=== PATIENT | female | born 1930 | race Caucasian/White ===

== ENCOUNTER 2018-04-22 16:39 | Inpatient (IN) | payer MEDICAID ==
[~2018-04-22] VITALS: Ht 154.9 cm; Wt 63.4 kg
[2018-04-22] MEDS ORDERED: CEFEPIME 2GM/50 ML (PMX) 50 ML IVPB STA (17:08)
[2018-04-22] MEDS ORDERED: SODIUM CHLORIDE 0.9% 1L BAG IV* STA (17:08)
[2018-04-22] MEDS ORDERED: VANCOMYCIN 1 GM (PMX) 250 ML IVPB ONE (17:30)
[2018-04-22] MEDS ORDERED: DIPHENHYDRAMINE 50 MG INJ IV ONE (21:00)
[2018-04-22] MEDS ORDERED: RANITIDINE 50 MG in SOD CHLORIDE 0.9% 50 ML IVPB SCH (21:00)
[2018-04-22] MEDS: ACETAMINOPHEN 325 MG TAB PO ONE ×2 (21:46→22:24)
[2018-04-22] MEDS ORDERED: ONDANSETRON 4 MG INJ IV PRN ×2 (22:00→23:30)
[2018-04-22] MEDS ORDERED: ACETAMINOPHEN 325 MG TAB PO PRN ×2 (22:00→23:30)
[2018-04-22 22:41] VITALS: PULSE 112
[2018-04-22] MEDS ORDERED: CAPT25TA3 PO (23:02)
[2018-04-22] MEDS ORDERED: INDA1.25 PO (23:02)
[2018-04-22 23:04] VITALS: Ht 154.9 cm; Wt 63.4 kg
--- NOTE | 2018-04-22 23:26 | HP ---
Date/Time of Note Date/Time of Note DATE: 04/22/18 TIME: 23:24 Assessment/Plan VTE Prophylaxis Pharmacological prophylaxis: heparin Lines/Catheters IV Catheter Type (from Nrsg): [place] Assessment/Plan Assessment/Plan 1. Sepsis, as evidenced by fever and tachycardia, likely secondary to UTI -IV antibiotic, IV fluid -Follow-up culture results 2. Altered mental status -Patient was complaining of headache 5 days ago and there for the past 5 days he has been progressively more confused and having some difficulty with ambulation -Patient blood pressure has been fluctuating here in the hospital, so hypertensive encephalopathy is a possibility. We will however rule out CVA -I will order head CT. This will be followed up with MRI of the brain. Will also obtain carotid Doppler ultrasound and 2D echo -PT and speech/swallow eval. Patient failed bedside swallow eval -Neurology consult, who should also address left upper extremity tremor 3. 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 Patient also unable to fully extend arm -X-ray of left upper extremity -Neurology consult as mentioned above 4. Presumed VENKAT: Likely from dehydration because of decreased fluid intake -will hydrate for now. Renal ultrasound and nephrology consult as needed 5. Hypertension: BP has been fluctuating -Adjust BP meds as needed Result Diagram: 04/22/18 1725 04/22/18 1725 Results 24hrs Laboratory Tests Test 04/22/18 17:24 04/22/18 17:25 04/22/18 19:04 04/22/18 19:17 POC Venous Lactate 1.9 1.7 White Blood Count 10.5 Red Blood Count 3.92 L Hemoglobin 12.0 Hematocrit 36.1 L Mean Corpuscular 92.1 Volume Mean Corpuscular 30.6 Hemoglobin Mean Corpuscular 33.2 Hemoglobin Concent Red Cell 13.7 Distribution Width Platelet Count 172 Mean Platelet Volume 10.9 H Immature 0.700 H Granulocytes % Neutrophils % 76.4 Lymphocytes % 11.7 L Monocytes % 10.8 Eosinophils % 0.2 Basophils % 0.2 Nucleated Red Blood 0.0 Cells % Immature 0.070 H Granulocytes # Neutrophils # 8.0 H Lymphocytes # 1.2 Monocytes # 1.1 H Eosinophils # 0.0 Basophils # 0.0 Nucleated Red Blood 0.0 Cells # Prothrombin Time 14.0 Prothrombin Time 1.1 Ratio INR International 1.07 Normalized Ratio Activated 25.8 Partial Thromboplast Time Sodium Level 138 Potassium Level 3.5 Chloride Level 100 Carbon Dioxide Level 27 Anion Gap 11 Blood Urea Nitrogen 34 H Creatinine 1.15 H Est Glomerular Filtrat Rate mL/min Glucose Level 227 H Calcium Level 10.2 Total Bilirubin 0.7 Direct Bilirubin 0.00 Indirect Bilirubin 0.7 Aspartate Amino 28 Transf (AST/SGOT) Alanine 24 Aminotransferase (AL T/SGPT) Alkaline Phosphatase 112 Troponin I < 0.012 Total Protein 8.3 H Albumin 4.3 Globulin 4.00 H Albumin/Globulin 1.07 Ratio Urine Color STRAW Urine Clarity CLEAR Urine pH 6.0 Urine Specific 1.009 [place] Urine Ketones NEGATIVE Urine Nitrite POSITIVE A Urine Bilirubin NEGATIVE Urine Urobilinogen NEGATIVE Urine Leukocyte NEGATIVE Esterase Urine Microscopic 1 RBC Urine Microscopic 2 WBC Urine Bacteria FEW A Urine Hemoglobin 1+ H Urine Glucose NEGATIVE Urine Total Protein 1+ H Test 04/22/18 21:32 Lactic Acid Level 1.9 HPI/ROS Admit Date/Time Admit Date/Time Apr 22, 2018 at 21:39 Hx of Present Illness This is an 87-year-old female with a history of hypertension who was brought to the ER for confusion. Patient is accompanied by family who provided history. According to the son, patient was complaining of headache 5 days ago. Three days ago, she started becoming confused and was having difficulty with ambulation. Son also reported foul-smelling urine. He said, patient normally is able to care for herself, however for the past 3 days she was unable to do so. Patient has been drinking only small amount of water, but has been eating food normally like she used to according to her son. Son also thinks that patient may be constipated saying that sometimes she has been screaming with pain when having bowel movements. No diarrhea, no rectal bleeding. On physical exam, I noticed that she has tremors on her left upper extremity. According to the son, this is been going on for the past 4 years. He went on to say that doctors told him this is part of the normal aging process. She is not able to fully extend her left arm. No obvious deformity noted. Family was unaware of this. They denied trauma. And presents the ER, she was febrile with a temperature of 102. She was also tachycardic. Lab shows a creatinine of 1.15. PMH/Family/Social Past Medical History Medical History: other (See HPI) Medications Current Medications Ranitidine HCl 50 mg/Sodium Chloride 52 ml @ 104 mls/hr ONCE IVPB Last administered on 04/22/18at 21:39; Admin Dose 104 MLS/HR; Start 04/22/18 at 21:00 Ondansetron HCl (Zofran Inj) 4 mg ER BRIDGE PRN IV NAUSEA/VOMITING; Start 04/22/18 at 22:00; Stop 04/23/18 at 21:59 Acetaminophen (Tylenol Tab) 650 mg ER BRIDGE PRN PO .MILD PAIN 1-3 OR TEMP; Start 04/22/18 at 22:00; Stop 04/23/18 at 21:59 Sodium Chloride 1,000 ml @ 80 mls/hr [id number] IV ; Start 04/22/18 at 23:15; Status UNV IV Flush (NS 3 ml) 3 ml PER PROTOCOL IV ; Start 04/22/18 at 23:30; Status UNV Ondansetron HCl (Zofran Inj) 4 mg Q6H PRN IV NAUSEA/VOMITING; Start 04/22/18 at 23:30; Status UNV Aspirin (Aspirin) 81 mg DAILY PO ; Start 04/23/18 at 09:00; Status UNV Acetaminophen (Tylenol Tab) 650 mg Q6H PRN PO .PAIN 1-3 OR TEMP; Start 04/22/18 at 23:30; Status UNV Heparin Sodium (Porcine) (Heparin (5000 Units/1ml)) 5,000 unit Q12 SC ; Start 04/23/18 at 09:00; Status UNV Albuterol/ Ipratropium (Duoneb) 3 ml Q2H RESP THERAPY PRN HHN SHORTNESS OF BREATH; Start 04/22/18 at 23:30; Status UNV Metoprolol Tartrate (Lopressor) 25 mg BID PO ; Start 04/23/18 at 09:00; Status UNV Coded Allergies: No Known Allergy (Verified Allergy, Unknown, 01/21/09) Past Surgical History Past Surgical Hx: other (See HPI) Family History Significant Family History: no pertinent family hx Social History Alcohol Use: none Smoking Status: Never smoker Drug Use: none Exam/Review of Systems Vital Signs Vitals Vital Signs Date Temp Pulse Resp B/P (MAP) Pulse Ox O2 O2 Flow FiO2 Time Delivery Rate 04/22/18 112 22:41 04/22/18 102.0 22:24 04/22/18 27 98/84 (89) 97 Nasal 3.0 22:18 Cannula Exam Constitutional: other (No acute distress. Patient appears lethargic, but arousable. Not fully oriented) Head: normocephalic, atraumatic Eyes: PERRL Respiratory: clear to auscultation, normal air movement Cardiovascular: other (Tachycardic regular rhythm) Gastrointestinal: soft Extremities: normal pulses, other (Left upper extremity tremor.) Neurological: other (Not fully oriented. Left upper extremity tremor noted. Unable to fully assess because of her current mental status) JAVED BRADY MD Apr 22, 2018 23:26
[2018-04-22] MEDS ORDERED: NACL 0.9% 3 ML SYG IV SCH (23:30)
[2018-04-23] VITALS (14 sets, daily range): BP systolic 131–200; BP diastolic 62–88; PULSE 92–102; RESP 17–18
[2018-04-23] MEDS ORDERED: LABETALOL HCL 20MG INJ IV ONE
[2018-04-23] MEDS: SOD CHLORIDE 0.9% 1,000 ML IV SCH ×2 (00:20→12:07)
[2018-04-23] MEDS ORDERED: ACETAMINOPHEN 650 MG SUPP PR PRN (00:30)
[2018-04-23] MEDS ORDERED: hydrALAzine 20 MG INJ IV ONE (05:00)
[2018-04-23] MEDS: CEFEPIME 1GM/50 ML (PMX) 50 ML IVPB SCH ×2 (08:48→20:30)
[2018-04-23] MEDS: METOPROLOL 25 MG TAB PO SCH ×2 (09:00→20:29)
[2018-04-23] MEDS ORDERED: VANCOMYCIN IV PER PHARMACY XX SCH (09:00)
[2018-04-23] MEDS ORDERED: ASPIRIN 81 MG TAB PO SCH (09:00)
--- NOTE | 2018-04-23 09:21 | PN ---
Date/Time of Note Date/Time of Note DATE: 04/23/18 TIME: 09: Assessment/Plan VTE Prophylaxis Risk score (from Ns)>0 risk: 7 SCD applied (from Ns): Yes Pharmacological prophylaxis: heparin Lines/Catheters IV [facility]from [facility] Peripheral IV Urinary Cath still in place: No Assessment/Plan Hospital Course Subjective: very altered and sleepy, not safe for a diet Objective : Constitutional: other (No acute distress. Patient appears lethargic, but arousable. Not fully oriented) Head: normocephalic, atraumatic Eyes: PERRL Respiratory: clear to auscultation, normal air movement Cardiovascular: other (Tachycardic regular rhythm) Gastrointestinal: soft Extremities: normal pulses, other (Left upper extremity tremor.) Neurological: other (Not fully oriented. Left upper extremity tremor noted. Unable to fully assess because of her current mental status) assessment and plan This is an 87-year-old female with a history of hypertension who was brought to the ER for confusion. Patient is accompanied by family who provided history. According to the son, patient was complaining of headache 5 days ago. Three days ago, she started becoming confused and was having difficulty with ambulation. Son also reported foul-smelling urine. She is managed as follows: 1. Sepsis, likely secondary to UTI 2. Altered mental status -may be 2/2 #1, but also being worked up for organic brain injury -CT head showing old strokes only for now -may also be progression of dementia 3. 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 Patient als o unable to fully extend arm -X-ray of left upper extremity still pending -Neurology consult -F/u MRI 4. VENKAT: resolved with hydration -continue to monitor creatinine levels -stop IVF as soon as patient can take PO 5. Hypertension: BP has been fluctuating -home ACei and thiazide on hold for now, not cleared for PO, continue PRN hydralazine only 6. : Prev CVA 7. Hypokalemia: -replete 8. DM. Hgb A1c 8.0 -?new diagnosis, will have to get more information -SSI for now, (NPO), depending on indices, we'll determine further care further interventions per course Prophylaxis: pepcid / heparin Result Diagram: 04/23/1831 2/28/19 0531 Results 24hrs Laboratory Tests Test 04/22/18 17:24 04/22/18 17:25 04/22/18 19:04 04/22/18 19:17 POC Venous Lactate 1.9 1.7 White Blood Count 10.5 Red Blood Count 3.92 L Hemoglobin 12.0 Hematocrit 36.1 L Mean Corpuscular 92.1 Volume Mean Corpuscular 30.6 Hemoglobin Mean Corpuscular 33.2 Hemoglobin Concent Red Cell 13.7 Distribution Width Platelet Count 172 Mean Platelet Volume 10.9 H Immature 0.700 H Granulocytes % Neutrophils % 76.4 Lymphocytes % 11.7 L Monocytes % 10.8 Eosinophils % 0.2 Basophils % 0.2 Nucleated Red Blood 0.0 Cells % Immature 0.070 H Granulocytes # Neutrophils # 8.0 H Lymphocytes # 1.2 Monocytes # 1.1 H Eosinophils # 0.0 Basophils # 0.0 Nucleated Red Blood 0.0 Cells # Prothrombin Time 14.0 Prothrombin Time 1.1 Ratio INR International 1.07 Normalized Ratio Activated 25.8 Partial Thromboplast Time Sodium Level 138 Potassium Level 3.5 Chloride Level 100 Carbon Dioxide Level 27 Anion Gap 11 Blood Urea Nitrogen 34 H Creatinine 1.15 H Est Glomerular Filtrat Rate mL/min Glucose Level 227 H Calcium Level 10.2 Total Bilirubin 0.7 Direct Bilirubin 0.00 Indirect Bilirubin 0.7 Aspartate Amino 28 Transf (AST/SGOT) Alanine 24 Aminotransferase (AL T/SGPT) Alkaline Phosphatase 112 Troponin I < 0.012 Total Protein 8.3 H Albumin 4.3 Globulin 4.00 H Albumin/Globulin 1.07 Ratio Urine Color STRAW Urine Clarity CLEAR Urine pH 6.0 Urine Specific 1.009 [place] Urine Ketones NEGATIVE Urine Nitrite POSITIVE A Urine Bilirubin NEGATIVE Urine Urobilinogen NEGATIVE Urine Leukocyte NEGATIVE Esterase Urine Microscopic 1 RBC Urine Microscopic 2 WBC Urine Bacteria FEW A Urine Hemoglobin 1+ H Urine Glucose NEGATIVE Urine Total Protein 1+ H Test 04/22/18 21:32 04/23/18 05:31 Lactic Acid Level 1.9 White Blood Count 10.4 Red Blood Count 3.57 L Hemoglobin 10.7 L Hematocrit 32.8 L Mean Corpuscular 91.9 Volume Mean Corpuscular 30.0 Hemoglobin Mean Corpuscular 32.6 Hemoglobin Concent Red Cell 13.7 Distribution Width Platelet Count 155 Mean Platelet Volume 11.9 H Immature 0.600 H Granulocytes % Neutrophils % 74.3 Lymphocytes % 14.5 L Monocytes % 10.2 Eosinophils % 0.1 Basophils % 0.3 Nucleated Red Blood 0.0 Cells % Immature 0.060 H Granulocytes # Neutrophils # 7.7 H Lymphocytes # 1.5 Monocytes # 1.1 H Eosinophils # 0.0 Basophils # 0.0 Nucleated Red Blood 0.0 Cells # Sodium Level 140 Potassium Level 3.1 L Chloride Level 103 Carbon Dioxide Level 24 Anion Gap 13 Blood Urea Nitrogen 23 #H Creatinine 0.98 Est Glomerular Filtrat Rate mL/min Glucose Level 197 Hemoglobin A1c 8.0 H Calcium Level 8.8 Magnesium Level 1.7 Total Bilirubin 0.7 Direct Bilirubin 0.00 Indirect Bilirubin 0.7 Aspartate Amino 23 Transf (AST/SGOT) Alanine 24 Aminotransferase (AL T/SGPT) Alkaline Phosphatase 88 Total Protein 7.0 # Albumin 3.4 Globulin 3.60 H Albumin/Globulin 0.94 Ratio Triglycerides Level 97 Cholesterol Level 150 LDL Cholesterol, 95 Calculated HDL Cholesterol 36 Cholesterol/HDL 4.1 Ratio Thyroid Stimulating 2.730 Hormone (TSH) Exam/Review of Systems Exam Vitals Vital Signs Date Temp Pulse Resp B/P (MAP) Pulse Ox O2 O2 Flow FiO2 Time Delivery Rate 04/23/18 99 08:08 04/23/18 Nasal 2.0 07:55 Cannula 04/23/18 98.6 18 161/73 95 07:15 (102) 04/23/18 31 02:16 Intake and Output 04/22/18 04/22/18 04/23/18 1515:00 23:00 07:00 IntakeIntake Total 2180 ml BalanceBalance 2180 ml Results Results 24hrs Laboratory Tests Test 04/22/18 17:24 04/22/18 17:25 04/22/18 19:04 04/22/18 19:17 POC Venous Lactate 1.9 1.7 White Blood Count 10.5 Red Blood Count 3.92 L Hemoglobin 12.0 Hematocrit 36.1 L Mean Corpuscular 92.1 Volume Mean Corpuscular 30.6 Hemoglobin Mean Corpuscular 33.2 Hemoglobin Concent Red Cell 13.7 Distribution Width Platelet Count 172 Mean Platelet Volume 10.9 H Immature 0.700 H Granulocytes % Neutrophils % 76.4 Lymphocytes % 11.7 L Monocytes % 10.8 Eosinophils % 0.2 Basophils % 0.2 Nucleated Red Blood 0.0 Cells % Immature 0.070 H Granulocytes # Neutrophils # 8.0 H Lymphocytes # 1.2 Monocytes # 1.1 H Eosinophils # 0.0 Basophils # 0.0 Nucleated Red Blood 0.0 Cells # Prothrombin Time 14.0 Prothrombin Time 1.1 Ratio INR International 1.07 Normalized Ratio Activated 25.8 Partial Thromboplast Time Sodium Level 138 Potassium Level 3.5 Chloride Level 100 Carbon Dioxide Level 27 Anion Gap 11 Blood Urea Nitrogen 34 H Creatinine 1.15 H Est Glomerular Filtrat Rate mL/min Glucose Level 227 H Calcium Level 10.2 Total Bilirubin 0.7 Direct Bilirubin 0.00 Indirect Bilirubin 0.7 Aspartate Amino 28 Transf (AST/SGOT) Alanine 24 Aminotransferase (AL T/SGPT) Alkaline Phosphatase 112 Troponin I < 0.012 Total Protein 8.3 H Albumin 4.3 Globulin 4.00 H Albumin/Globulin 1.07 Ratio Urine Color STRAW Urine Clarity CLEAR Urine pH 6.0 Urine Specific 1.009 [place] Urine Ketones NEGATIVE Urine Nitrite POSITIVE A Urine Bilirubin NEGATIVE Urine Urobilinogen NEGATIVE Urine Leukocyte NEGATIVE Esterase Urine Microscopic 1 RBC Urine Microscopic 2 WBC Urine Bacteria FEW A Urine Hemoglobin 1+ H Urine Glucose NEGATIVE Urine Total Protein 1+ H Test 04/22/18 21:32 04/23/18 05:31 Lactic Acid Level 1.9 White Blood Count 10.4 Red Blood Count 3.57 L Hemoglobin 10.7 L Hematocrit 32.8 L Mean Corpuscular 91.9 Volume Mean Corpuscular 30.0 Hemoglobin Mean Corpuscular 32.6 Hemoglobin Concent Red Cell 13.7 Distribution Width Platelet Count 155 Mean Platelet Volume 11.9 H Immature 0.600 H Granulocytes % Neutrophils % 74.3 Lymphocytes % 14.5 L Monocytes % 10.2 Eosinophils % 0.1 Basophils % 0.3 Nucleated Red Blood 0.0 Cells % Immature 0.060 H Granulocytes # Neutrophils # 7.7 H Lymphocytes # 1.5 Monocytes # 1.1 H Eosinophils # 0.0 Basophils # 0.0 Nucleated Red Blood 0.0 Cells # Sodium Level 140 Potassium Level 3.1 L Chloride Level 103 Carbon Dioxide Level 24 Anion Gap 13 Blood Urea Nitrogen 23 #H Creatinine 0.98 Est Glomerular Filtrat Rate mL/min Glucose Level 197 Hemoglobin A1c 8.0 H Calcium Level 8.8 Magnesium Level 1.7 Total Bilirubin 0.7 Direct Bilirubin 0.00 Indirect Bilirubin 0.7 Aspartate Amino 23 Transf (AST/SGOT) Alanine 24 Aminotransferase (AL T/SGPT) Alkaline Phosphatase 88 Total Protein 7.0 # Albumin 3.4 Globulin 3.60 H Albumin/Globulin 0.94 Ratio Triglycerides Level 97 Cholesterol Level 150 LDL Cholesterol, 95 Calculated HDL Cholesterol 36 Cholesterol/HDL 4.1 Ratio Thyroid Stimulating 2.730 Hormone (TSH) Medications Medication Current Medications Ranitidine HCl 50 mg/Sodium Chloride 52 ml @ 104 mls/hr ONCE IVPB Last administered on 04/22/18at 21:39; Admin Dose 104 MLS/HR; Start 04/22/18 at 21:00 Ondansetron HCl (Zofran Inj) 4 mg ER BRIDGE PRN IV NAUSEA/VOMITING; Start 04/22/18 at 22:00; Stop 04/23/18 at 21:59 Acetaminophen (Tylenol Tab) 650 mg ER BRIDGE PRN PO .MILD PAIN 1-3 OR TEMP; Start 04/22/18 at 22:00; Stop 04/23/18 at 21:59 Sodium Chloride 1,000 ml @ 80 mls/hr [id number] IV Last administered on 04/23/18at 00:20; Admin Dose 80 MLS/HR; Start 04/22/18 at 23:15 IV Flush (NS 3 ml) 3 ml PER PROTOCOL IV ; Start 04/22/18 at 23:30 Ondansetron HCl (Zofran Inj) 4 mg Q6H PRN IV NAUSEA/VOMITING; Start 04/22/18 at 23:30 Aspirin (Aspirin) 81 mg DAILY PO ; Start 04/23/18 at 09:00 Acetaminophen (Tylenol Tab) 650 mg Q6H PRN PO .PAIN 1-3 OR TEMP; Start 04/22/18 at 23:30 Heparin Sodium (Porcine) (Heparin (5000 Units/1ml)) 5,000 unit Q12 SC ; Start 04/23/18 at 09:00 Albuterol/ Ipratropium (Duoneb) 3 ml Q2H RESP THERAPY PRN HHN SHORTNESS OF BREATH; Start 04/22/18 at 23:30 Metoprolol Tartrate (Lopressor) 25 mg BID PO ; Start 04/23/18 at 09:00 Cefepime HCl 50 ml @ 100 mls/hr Q12 IVPB Last administered on 04/23/18at 08:48; Admin Dose 100 MLS/HR; Start 04/23/18 at 09:00 Vancomycin HCl (Vanco Iv Per Pharmacy) VANCOMYCIN PER PHARM... PER PROTOCOL XX ; Start 04/23/18 at 09:00 Vancomycin/Sodium Chloride 250 ml @ 125 mls/hr Q36H IVPB ; Start 04/24/18 at 06:00 Acetaminophen (Tylenol Supp) 650 mg Q6H PRN [place] FEVER; Start 04/23/18 at 00:30 KAREN CROWELL Apr 23, 2018 09:21
[2018-04-23] MEDS: HEPARIN 5,000 UNIT/1 ML VIAL SC SCH ×2 (10:09→20:53)
[2018-04-23] MEDS ORDERED: POTASSIUM CHLORIDE (SR) 20 MEQ TAB PO STA (10:43)
[2018-04-23] MEDS ORDERED: ASPIRIN 300 MG SUPP PR ONE (11:00)
[2018-04-23] MEDS ORDERED: MAGNESIUM SULFATE 1 GM/D5W 100 ML IVPB ONE (12:00)
[2018-04-23] MEDS: ASPIRIN 81 MG TAB PO SCH (12:49)
[2018-04-23] MEDS: POTASSIUM CHLORIDE 100 ML IVPB SCH ×2 (13:19→16:51)
--- NOTE | 2018-04-23 14:15 | CONS ---
Assessment/Plan Assessment/Plan Hospital Course 87 yo F with hx of HTN who presents for evaluation of ams in the context of fevers... for which neurology is consulted. UTI + Clinically consistent with an acute toxic-metabolic encephalopathy in the gina xt of systemic infection. Encephalitis is unlikely. 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 As an aside, she is noted to have LUE tremors, which family reports to have progressively worsened over the past 4 years... which raises suspicion for an idiopathic Parkinson's disease. P: Await MRI brain without contrast for further characterization ASA/Lipitor for secondary stroke prevention Add echo Consider trial of sinemet in the future, when her mental status improves PT/OT/ST as tolerated Cont medical management per primary Will follow clinically Consultation Date/Type/Reason Admit Date/Time Apr 22, 2018 at 21:39 Type of Consult Neurology Requesting Provider: KAREN CROWELL Date/Time of Note DATE: 04/23/18 TIME: 14:15 Hx of Present Illness Hx of Present Illness This is an 87-year-old female with a history of hypertension who was brought to the ER for confusion. Patient is accompanied by family who provided history. According to the son, patient was complaining of headache 5 days ago. Three days ago, she started becoming confused and was having difficulty with ambulation. Son also reported foul-smelling urine. He said, patient normally is able to care for herself, however for the past 3 days she was unable to do so. Patient has been drinking only small amount of water, but has been eating food normally like she used to according to her son. Son also thinks that patient may be constipated saying that sometimes she has been screaming with pain when having bowel movements. No diarrhea, no rectal bleeding. On physical exam, I noticed that she has tremors on her left upper extremity. According to the son, this is been going on for the past 4 years. He went on to say that doctors told him this is part of the normal aging process. She is not able to fully extend her left arm. No obvious deformity noted. Family was unaware of this. They denied trauma. And presents the ER, she was febrile with a temperature of 102. She was also tachycardic. Lab shows a creatinine of 1.15. The son states that she has had hand tremors x 4 years and states that her LUE tremors seemed to worsen two days ago. He also noted that the pt had a shuffled gait at home, when ambulating unassisted. limited d/t ams Exam/Review of Systems Exam Vitals Vital Signs Date Temp Pulse Resp B/P (MAP) Pulse Ox O2 O2 Flow FiO2 Time Delivery Rate 04/23/18 98 12:07 04/23/18 98.3 18 134/62 95 Nasal 11:11 (86) Cannula 04/23/18 2.0 07:55 04/23/18 31 02:16 Intake and Output 04/22/18 04/22/18 04/23/18 1515:00 23:00 07:00 IntakeIntake Total 2180 ml BalanceBalance 2180 ml Exam PE: Gen Appearance: No Apparent Distress HEENT: Normocephalic Cardiovascular: Regular rate Lungs: Clear bilaterally Abdomen: Soft Extremities: Dry NE: The patient was alert though disoriented; sparsely verbal. Language was normal. Fund of knowledge was poor. Pupils were equal and reactive to light. There was no afferent pupillary defect. Visual garcia were normal. Funduscopic examination was limited. Extra-ocular movements were full. Ptosis was absent. There was no nystagmus. Facial sensation was normal. Face was symmetric with normal strength. Hearing was intact. Palate movements were normal. Neck strength was normal. There was normal tongue bulk and speed of movement. Tone was increased in BUE, L>R. Muscle bulk was diminished. LUE and R hand resti ng tremors were noted. Arms and legs were weak, symmetrically. Vibration sensation was normal. Temperature and pinprick sensation was normal. Rapid alternating movements were slow and uncoordinated. Dysmetria noted bilaterally. There an intention tremor BL. Gait was deferred due to bedrest. Arm and leg reflexes were 2+ and symmetric. Escobar's sign was absent. Plantar responses were flexor. Results Result Diagram: 04/23/18 0531 04/23/18 0531 Results 24hrs Laboratory Tests Test 04/22/18 17:24 04/22/18 17:25 04/22/18 19:04 04/22/18 19:17 POC Venous Lactate 1.9 1.7 White Blood Count 10.5 Red Blood Count 3.92 L Hemoglobin 12.0 Hematocrit 36.1 L Mean Corpuscular 92.1 Volume Mean Corpuscular 30.6 Hemoglobin Mean Corpuscular 33.2 Hemoglobin Concent Red Cell 13.7 Distribution Width Platelet Count 172 Mean Platelet Volume 10.9 H Immature 0.700 H Granulocytes % Neutrophils % 76.4 Lymphocytes % 11.7 L Monocytes % 10.8 Eosinophils % 0.2 Basophils % 0.2 Nucleated Red Blood 0.0 Cells % Immature 0.070 H Granulocytes # Neutrophils # 8.0 H Lymphocytes # 1.2 Monocytes # 1.1 H Eosinophils # 0.0 Basophils # 0.0 Nucleated Red Blood 0.0 Cells # Prothrombin Time 14.0 Prothrombin Time 1.1 Ratio INR International 1.07 Normalized Ratio Activated 25.8 Partial Thromboplast Time Sodium Level 138 Potassium Level 3.5 Chloride Level 100 Carbon Dioxide Level 27 Anion Gap 11 Blood Urea Nitrogen 34 H Creatinine 1.15 H Est Glomerular Filtrat Rate mL/min Glucose Level 227 H Calcium Level 10.2 Total Bilirubin 0.7 Direct Bilirubin 0.00 Indirect Bilirubin 0.7 Aspartate Amino 28 Transf (AST/SGOT) Alanine 24 Aminotransferase (AL T/SGPT) Alkaline Phosphatase 112 Troponin I < 0.012 Total Protein 8.3 H Albumin 4.3 Globulin 4.00 H Albumin/Globulin 1.07 Ratio Urine Color STRAW Urine Clarity CLEAR Urine pH 6.0 Urine Specific 1.009 [place] Urine Ketones NEGATIVE Urine Nitrite POSITIVE A Urine Bilirubin NEGATIVE Urine Urobilinogen NEGATIVE Urine Leukocyte NEGATIVE Esterase Urine Microscopic 1 RBC Urine Microscopic 2 WBC Urine Bacteria FEW A Urine Hemoglobin 1+ H Urine Glucose NEGATIVE Urine Total Protein 1+ H Test 04/22/18 21:32 04/23/18 05:31 Lactic Acid Level 1.9 White Blood Count 10.4 Red Blood Count 3.57 L Hemoglobin 10.7 L Hematocrit 32.8 L Mean Corpuscular 91.9 Volume Mean Corpuscular 30.0 Hemoglobin Mean Corpuscular 32.6 Hemoglobin Concent Red Cell 13.7 Distribution Width Platelet Count 155 Mean Platelet Volume 11.9 H Immature 0.600 H Granulocytes % Neutrophils % 74.3 Lymphocytes % 14.5 L Monocytes % 10.2 Eosinophils % 0.1 Basophils % 0.3 Nucleated Red Blood 0.0 Cells % Immature 0.060 H Granulocytes # Neutrophils # 7.7 H Lymphocytes # 1.5 Monocytes # 1.1 H Eosinophils # 0.0 Basophils # 0.0 Nucleated Red Blood 0.0 Cells # Sodium Level 140 Potassium Level 3.1 L Chloride Level 103 Carbon Dioxide Level 24 Anion Gap 13 Blood Urea Nitrogen 23 #H Creatinine 0.98 Est Glomerular Filtrat Rate mL/min Glucose Level 197 Hemoglobin A1c 8.0 H Calcium Level 8.8 Magnesium Level 1.7 Total Bilirubin 0.7 Direct Bilirubin 0.00 Indirect Bilirubin 0.7 Aspartate Amino 23 Transf (AST/SGOT) Alanine 24 Aminotransferase (AL T/SGPT) Alkaline Phosphatase 88 Total Protein 7.0 # Albumin 3.4 Globulin 3.60 H Albumin/Globulin 0.94 Ratio Triglycerides Level 97 Cholesterol Level 150 LDL Cholesterol, 95 Calculated HDL Cholesterol 36 Cholesterol/HDL 4.1 Ratio Thyroid Stimulating 2.730 Hormone (TSH) Medications Medication Current Medications Sodium Chloride 1,000 ml @ 80 mls/hr [id number] IV Last administered on 04/23/18at 12:07; Admin Dose 80 MLS/HR; Start 04/22/18 at 23:15 IV Flush (NS 3 ml) 3 ml PER PROTOCOL IV ; Start 04/22/18 at 23:30 Ondansetron HCl (Zofran Inj) 4 mg Q6H PRN IV NAUSEA/VOMITING; Start 04/22/18 at 23:30 Acetaminophen (Tylenol Tab) 650 mg Q6H PRN PO .PAIN 1-3 OR TEMP; Start 04/22/18 at 23:30 Heparin Sodium (Porcine) (Heparin (5000 Units/1ml)) 5,000 unit Q12 SC Last administered on 04/23/18at 10:09; Admin Dose 5,000 UNIT; Start 04/23/18 at 09:00 Albuterol/ Ipratropium (Duoneb) 3 ml Q2H RESP THERAPY PRN HHN SHORTNESS OF BREATH; Start 04/22/18 at 23:30 Metoprolol Tartrate (Lopressor) 25 mg BID PO ; Start 04/23/18 at 09:00 Cefepime HCl 50 ml @ 100 mls/hr Q12 IVPB Last administered on 04/23/18at 08:48; Admin Dose 100 MLS/HR; Start 04/23/18 at 09:00 Acetaminophen (Tylenol Supp) 650 mg Q6H PRN RI FEVER; Start 04/23/18 at 00:30 Potassium Chloride 100 ml @ 50 mls/hr Q2H IVPB Last administered on 04/23/18at 13:19; Admin Dose 50 MLS/HR; Start 04/23/18 at 11:00; Stop 04/23/18 at 14:59 Famotidine (Pepcid Iv) 20 mg HS IV ; Start 04/23/18 at 21:00 Aspirin (Aspirin) 81 mg DAILY PO Last administered on 04/23/18at 12:49; Admin Dose 81 MG; Start 04/23/18 at 13:00 Past Medical History reviewed Medical History: other (See HPI) Home Meds Reported Medications Indapamide* (Indapamide*) 1.25 Mg Tablet, 1.25 MG PO DAILY, TAB 04/22/18 Captopril* (Captopril*) 25 Mg Tablet, 25 MG PO DAILY, #60 TAB 04/22/18 Medications Current Medications Sodium Chloride 1,000 ml @ 80 mls/hr [id number] IV Last administered on 04/23/18at 12:07; Admin Dose 80 MLS/HR; Start 04/22/18 at 23:15 IV Flush (NS 3 ml) 3 ml PER PROTOCOL IV ; Start 04/22/18 at 23:30 Ondansetron HCl (Zofran Inj) 4 mg Q6H PRN IV NAUSEA/VOMITING; Start 04/22/18 at 23:30 Acetaminophen (Tylenol Tab) 650 mg Q6H PRN PO .PAIN 1-3 OR TEMP; Start 04/22/18 at 23:30 Heparin Sodium (Porcine) (Heparin (5000 Units/1ml)) 5,000 unit Q12 SC Last administered on 04/23/18at 10:09; Admin Dose 5,000 UNIT; Start 04/23/18 at 09:00 Albuterol/ Ipratropium (Duoneb) 3 ml Q2H RESP THERAPY PRN HHN SHORTNESS OF BREATH; Start 04/22/18 at 23:30 Metoprolol Tartrate (Lopressor) 25 mg BID PO ; Start 04/23/18 at 09:00 Cefepime HCl 50 ml @ 100 mls/hr Q12 IVPB Last administered on 04/23/18at 08:48; Admin Dose 100 MLS/HR; Start 04/23/18 at 09:00 Acetaminophen (Tylenol Supp) 650 mg Q6H PRN RI FEVER; Start 04/23/18 at 00:30 Potassium Chloride 100 ml @ 50 mls/hr Q2H IVPB Last administered on 04/23/18at 13:19; Admin Dose 50 MLS/HR; Start 04/23/18 at 11:00; Stop 04/23/18 at 14:59 Famotidine (Pepcid Iv) 20 mg HS IV ; Start 04/23/18 at 21:00 Aspirin (Aspirin) 81 mg DAILY PO Last administered on 04/23/18at 12:49; Admin Dose 81 MG; Start 04/23/18 at 13:00 Allergies: Coded Allergies: No Known Allergy (Verified Allergy, Unknown, 01/21/09) Past Surgical History reviewed Past Surgical Hx: other (See HPI) Social History reviewed Alcohol Use: none Smoking Status: Never smoker Drug Use: none JAY LEMUS NP Apr 23, 2018 14:15
[2018-04-23] MEDS: hydrALAzine 20 MG INJ IV PRN (16:53)
[2018-04-23] MEDS: FAMOTIDINE 20 MG INJ IV SCH (20:30)
[2018-04-23] MEDS: ATORVASTATIN 20 MG TAB PO SCH (20:30)
--- NOTE | 2018-04-23 21:21 | RADRPT ---
Echocardiogram Report Patient Name: KELBY MALDONADOPatient ID: [id number] : 1930 (87y 11m)Study Date: 04/23/2018 7:46:59 AM Gender: FAccession #: [id number] Tech: Jovan Casey [facility] Location: [facility] Ref.Physician: JAVED BRADY Height(Cm): BSA: Weight(Kg): Quality: AdequateAccount #: Procedures: Echocardiographic Report: Transthoracic echocardiogram with complete 2D, M-Mode, and doppler examination. Indications: AMS. Measurements: 2D/M Mode Doppler Measurement Value Normal Range Measurement Value Normal Range LVIDd 2D 3.1 [ 3.8 - 5.2 ] cm MV E Peak Jose Antonio 1.0 [ 60.0 - 130.0 ] cm/sec LVIDs 2D 2.4 [ 2.2 - 3.5 ] cm MV A Peak Jose Antonio 1.3 [ 100.0 - 120.0 ] cm/sec IVSd 2D 1.2 [ 0.6 - 0.9 ] cm MV E/A 0.8 [ 0.8 - 1.5 ] ratio AoR Diam 2D 2.8 [ 2.3 - 3.1 ] cm MV Decel Time 162 [ 104 - 258 ] msec LA Dimen 2D 3.5 [ 2.7 - 3.8 ] cm MV E/A 0.8 [ 0.8 - 1.5 ] ratio TR Peak Jose Antonio 3.1 [ 100.0 - 280.0 ] cm/sec TR Peak PG 39.0 mmHg RVSP 42.0 [ 10.0 - 36.0 ] mmHg RA Pressure 3.0 mmHg Findings: Left Ventricle: Normal left ventricular systolic function. Normal left ventricular cavity size. Normal left ventricular wall thickness. Ejection fraction is visually estimated at 65 %. Tissue Doppler/Mitral Doppler indices are consistent with impaired relaxation (Stage I diastolic dysfunction). Right Ventricle: Normal right ventricular size. Normal right ventricular systolic function. Left Atrium: The left atrium is normal in size. Right Atrium: The right atrium is normal in size. Mitral Valve: Mitral valve leaflets appear mildly thickened. Mild mitral annular calcification. Trace mitral regurgitation. Aortic Valve: No significant aortic stenosis or insufficiency. Aortic cusps appear mildly calcified. Tricuspid Valve: Normal appearance of the tricuspid valve. Estimated peak PA systolic pressure 42 mmHg. There is mild tricuspid regurgitation. Pulmonic Valve: Normal pulmonic valve appearance. Pericardium: Normal pericardium with no significant pericardial effusion. Aorta: Normal aortic root. IVC: Normal size and normal respiratory collapse consistent with normal right atrial pressure. Conclusions: Normal left ventricular systolic function. Normal left ventricular cavity size. Normal left ventricular wall thickness. Ejection fraction is visually estimated at 65 %. Tissue Doppler/Mitral Doppler indices are consistent with impaired relaxation (Stage I diastolic dysfunction). Mitral valve leaflets appear mildly thickened. Mild mitral annular calcification. Trace mitral regurgitation. Normal appearance of the tricuspid valve. Estimated peak PA systolic pressure 42 mmHg. There is mild tricuspid regurgitation. Electronically Signed By: Gigi Moyer 2018-04-23 21:20:50 PST
[2018-04-24] VITALS (10 sets, daily range): BP systolic 128–179; BP diastolic 63–92; PULSE 78–105; RESP 18–20
[2018-04-24] MEDS: SOD CHLORIDE 0.9% 1,000 ML IV SCH ×2 (00:15→07:31)
[2018-04-24] MEDS: hydrALAzine 20 MG INJ IV PRN (00:31)
[2018-04-24] MEDS ORDERED: VANCOMYCIN 750 MG (PMX) 250 ML IVPB SCH (06:00)
--- NOTE | 2018-04-24 07:17 | PN ---
Date/Time of Note Date/Time of Note DATE: 04/24/18 TIME: 07:12 Assessment/Plan VTE Prophylaxis Risk score (from Ns)>0 risk: 7 SCD applied (from Ns): Yes Pharmacological prophylaxis: heparin Lines/Catheters IV Catheter Type (from [facility]): Peripheral IV Urinary Cath still in place: No Assessment/Plan Hospital Course Subjective: mentation improved, tolerating diet, but confused, pulling at lines, son says this is not normal Objective : Constitutional: arousable, elderly, no distress, confused Head: normocephalic, atraumatic Eyes: PERRL Respiratory: clear to auscultation, normal air movement Cardiovascular: RRR, no murmurs Gastrointestinal: soft Extremities: normal pulses, other (Left upper extremity tremor.) Neurological: other (Not fully oriented. Left upper extremity tremor noted. Unable to fully assess because of her current mental status) assessment and plan This is an 87-year-old female with a history of hypertension who was brought to the ER for confusion. Patient is accompanied by family who provided history. According to the son, patient was complaining of headache 5 days ago. Three days ago, she started becoming confused and was having difficulty with ambulation. Son also reported foul-smelling urine. She is managed as follows: 1. Sepsis, likely secondary to UTI -still spiking fevers -urine growing gram negative rods -blood cultures negative so far 2. Altered mental status : improved alertness, but still confused -may be 2/2 #1, but also being worked up for organic brain injury -CT and MRI head showing old strokes only for now, no new pathology -may also be progression of dementia -Neuro also notes possible new diagnosis of idiopathic parkinsons 3. 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 -idiopathic parkinsons? -X-ray of left upper extremity still pending, also add UE dopplers -OT eval 4. VENKAT: resolved with hydration -continue to monitor creatinine levels -stop IVF as soon as patient can take PO 5. Hypertension: BP has been fluctuating -resume home meds 6. Multiple Prev CVA 7. Hypokalemia: -replete 8. DM. Hgb A1c 8.0 -new diagnosis -SSI for now, depending on indices, we'll determine further care -diabetic education further interventions per course Prophylaxis: pepcid / heparin Dispo: -not cleared for d/c, still spiking fevers, f/u final cultures -seroquel? Result Diagram: 04/24/18 0603 04/24/18 0603 Results 24hrs Laboratory Tests Test 04/24/18 06:03 White Blood Count 10.3 Red Blood Count 3.77 L Hemoglobin 11.5 L Hematocrit 35.4 L Mean Corpuscular Volume 93.9 Mean Corpuscular Hemoglobin 30.5 Mean Corpuscular Hemoglobin Concent 32.5 Red Cell Distribution Width 13.9 Platelet Count 175 Mean Platelet Volume 11.5 H Immature Granulocytes % 0.700 H Neutrophils % 65.5 Lymphocytes % 21.1 Monocytes % 10.8 Eosinophils % 1.5 Basophils % 0.4 Nucleated Red Blood Cells % 0.0 Immature Granulocytes # 0.070 H Neutrophils # 6.7 Lymphocytes # 2.2 Monocytes # 1.1 H Eosinophils # 0.2 Basophils # 0.0 Nucleated Red Blood Cells # 0.0 Sodium Level 140 Potassium Level 3.3 L Chloride Level 107 Carbon Dioxide Level 25 Anion Gap 8 Blood Urea Nitrogen 21 H Creatinine 0.93 Est Glomerular Filtrat Rate mL/min Glucose Level 127 # Calcium Level 9.3 Magnesium Level 2.3 Exam/Review of Systems Exam Vitals Vital Signs Date Temp Pulse Resp B/P (MAP) Pulse Ox O2 O2 Flow FiO2 Time Delivery Rate 04/24/18 3.0 32 04:23 04/24/18 94 04:00 04/24/18 99.4 18 134/63 94 04:00 (86) 04/23/18 Nasal 19:05 Cannula Intake and Output 04/23/18 04/23/18 04/24/18 1414:59 22:59 06:59 IntakeIntake Total 1150 ml 580 ml 500 ml BalanceBalance 1150 ml 580 ml 500 ml Results Results 24hrs Laboratory Tests Test 04/24/18 06:03 White Blood Count 10.3 Red Blood Count 3.77 L Hemoglobin 11.5 L Hematocrit 35.4 L Mean Corpuscular Volume 93.9 Mean Corpuscular Hemoglobin 30.5 Mean Corpuscular Hemoglobin Concent 32.5 Red Cell Distribution Width 13.9 Platelet Count 175 Mean Platelet Volume 11.5 H Immature Granulocytes % 0.700 H Neutrophils % 65.5 Lymphocytes % 21.1 Monocytes % 10.8 Eosinophils % 1.5 Basophils % 0.4 Nucleated Red Blood Cells % 0.0 Immature Granulocytes # 0.070 H Neutrophils # 6.7 Lymphocytes # 2.2 Monocytes # 1.1 H Eosinophils # 0.2 Basophils # 0.0 Nucleated Red Blood Cells # 0.0 Sodium Level 140 Potassium Level 3.3 L Chloride Level 107 Carbon Dioxide Level 25 Anion Gap 8 Blood Urea Nitrogen 21 H Creatinine 0.93 Est Glomerular Filtrat Rate mL/min Glucose Level 127 # Calcium Level 9.3 Magnesium Level 2.3 Medications Medication Current Medications Sodium Chloride 1,000 ml @ 80 mls/hr [id number] IV Last administered on 04/23/18at 12:07; Admin Dose 80 MLS/HR; Start 04/22/18 at 23:15 IV Flush (NS 3 ml) 3 ml PER PROTOCOL IV ; Start 04/22/18 at 23:30 Ondansetron HCl (Zofran Inj) 4 mg Q6H PRN IV NAUSEA/VOMITING; Start 04/22/18 at 23:30 Acetaminophen (Tylenol Tab) 650 mg Q6H PRN PO .PAIN 1-3 OR TEMP Last administered on 04/24/18at 00:32; Admin Dose 650 MG; Start 04/22/18 at 23:30 Heparin Sodium (Porcine) (Heparin (5000 Units/1ml)) 5,000 unit Q12 SC Last administered on 04/23/18at 20:53; Admin Dose 5,000 UNIT; Start 04/23/18 at 09:00 Albuterol/ Ipratropium (Duoneb) 3 ml Q2H RESP THERAPY PRN HHN SHORTNESS OF BREATH; Start 04/22/18 at 23:30 Metoprolol Tartrate (Lopressor) 25 mg BID PO Last administered on 04/23/18at 2 0:29; Admin Dose 25 MG; Start 04/23/18 at 09:00 Cefepime HCl 50 ml @ 100 mls/hr Q12 IVPB Last administered on 04/23/18at 20:30; Admin Dose 100 MLS/HR; Start 04/23/18 at 09:00 Acetaminophen (Tylenol Supp) 650 mg Q6H PRN AR FEVER; Start 04/23/18 at 00:30 Famotidine (Pepcid Iv) 20 mg HS IV Last administered on 04/23/18at 20:30; Admin Dose 20 MG; Start 04/23/18 at 21:00 Aspirin (Aspirin) 81 mg DAILY PO Last administered on 04/23/18at 12:49; Admin Dose 81 MG; Start 04/23/18 at 13:00 Atorvastatin Calcium (Lipitor) 20 mg HS PO Last administered on 04/23/18at 20:30; Admin Dose 20 MG; Start 04/23/18 at 21:00 Hydralazine HCl (Apresoline) 10 mg Q6H PRN IV ELEVATED SYSTOLIC BP Last administered on 04/24/18at 00:31; Admin Dose 10 MG; Start 04/23/18 at 17:00 KAREN CROWELL Apr 24, 2018 07:17
[2018-04-24] MEDS ORDERED: DEXTROSE 50% 50 ML SYRINGE IV PRN ×2 (07:30)
[2018-04-24] MEDS ORDERED: GLUCOSE GEL 15 GRAM TUBE PO PRN ×2 (07:30)
[2018-04-24] MEDS ORDERED: GLUCOSE GEL 15 GRAM TUBE BUCCAL PRN (07:30)
[2018-04-24] MEDS ORDERED: GLUCAGON 1 MG INJ IM PRN (07:30)
[2018-04-24] MEDS ORDERED: ASPIRIN 81 MG TAB PO SCH (09:00)
[2018-04-24] MEDS: ASPIRIN 81 MG TAB PO SCH (09:02)
[2018-04-24] MEDS: CEFEPIME 1GM/50 ML (PMX) 50 ML IVPB SCH ×2 (09:02→20:55)
[2018-04-24] MEDS: POTASSIUM CHLORIDE 100 ML IVPB SCH ×2 (09:02→13:50)
[2018-04-24] MEDS: METOPROLOL 25 MG TAB PO SCH (09:03)
[2018-04-24] MEDS: INSULIN ASPART [NOVOLOG] 3 ML PEN SC SCH ×4 (09:23→20:48)
[2018-04-24] MEDS: HEPARIN 5,000 UNIT/1 ML VIAL SC SCH ×2 (09:24→20:45)
--- NOTE | 2018-04-24 14:56 | CONS ---
Assessment/Plan Assessment/Plan Hospital Course 87 yo F with hx of HTN who presents for evaluation of ams in the context of fevers... for which neurology is consulted. UTI + Clinically consistent with an acute toxic-metabolic encephalopathy in the context of systemic infection. Encephalitis is unlikely. MRI brain is reassuringly without acute intracranial pathology, though is notable for multiple chronic infarcts. Echo is unrevealing. As an aside, she is noted to have LUE tremors, which family reports to have progressively worsened over the past 4 years... which raises suspicion for an idiopathic Parkinson's disease. P: Cont ASA/Lipitor for secondary stroke prevention Consider trial of sinemet in the future, when her mental status improves PT/OT/ST as tolerated Cont medical management per primary Will follow clinically Consultation Date/Type/Reason Admit Date/Time Apr 22, 2018 at 21:39 Type of Consult Neurology Requesting Provider: KAREN CROWELL Date/Time of Note DATE: 04/24/18 TIME: 14:56 24 HR Interval Summary Free Text/Dictation Continues telemetry monitoring. S/p MRI Exam Vital Signs Vitals Vital Signs Date Temp Pulse Resp B/P (MAP) Pulse Ox O2 O2 Flow FiO2 Time Delivery Rate 04/24/18 96 12:00 04/24/18 98.9 20 154/70 96 Room Air 10:52 (98) 04/24/18 3.0 32 04:23 Intake and Output 04/23/18 04/23/18 04/24/18 1515:00 23:00 07:00 IntakeIntake Total 1150 ml 580 ml 500 ml BalanceBalance 1150 ml 580 ml 500 ml Exam PE: Gen Appearance: No Apparent Distress HEENT: Normocephalic Cardiovascular: Regular rate Lungs: Clear bilaterally Abdomen: Soft Extremities: Dry NE: The patient was alert and oriented to self and hospital; sparsely verbal. Language was normal. Fund of knowledge was poor. Pupils were equal and reactive to light. There was no afferent pupillary defect. Visual garcia were normal. Funduscopic examination was limited. Extra-ocular movements were full. Ptosis was absent. There was no nystagmus. Facial sensation was normal. Face was symmetric with normal strength. Hearing was intact. Palate movements were normal. Neck strength was normal. There was normal tongue bulk and speed of movement. Tone was increased in BUE, L>R. Muscle bulk was diminished. LUE and R hand resting tremors were noted. Arms and legs were weak, symmetrically. Vibration sensation was normal. Temperature and pinprick sensation was normal. Rapid alternating movements were slow and uncoordinated. Dysmetria noted bilaterally. There is an intention tremor BL. Gait was deferred due to bedrest. Arm and leg reflexes were 2+ and symmetric. Escobar's sign was absent. Plantar responses were flexor. JAY LEMUS NP Apr 24, 2018 14:56
[2018-04-24] MEDS: ATORVASTATIN 20 MG TAB PO SCH (20:50)
[2018-04-24] MEDS: METOPROLOL 50 MG TAB PO SCH (20:55)
[2018-04-24] MEDS: FAMOTIDINE 20 MG INJ IV SCH (20:56)
[2018-04-24] MEDS ORDERED: morphine 4 MG/ML VIAL IV ONE (23:26)
[2018-04-25] VITALS (18 sets, daily range): BP systolic 131–185; BP diastolic 58–85; PULSE 76–243; RESP 18–24
[2018-04-25] MEDS ORDERED: HALOPERIDOL 5 MG INJ IM PRN (00:30)
[2018-04-25] MEDS ORDERED: hydrALAzine 20 MG INJ IM ONE (00:30)
[2018-04-25] MEDS: ACCU-CHEK XX SCH (00:40)
[2018-04-25] MEDS: hydrALAzine 20 MG INJ IV PRN (04:23)
[2018-04-25] MEDS: INSULIN ASPART [NOVOLOG] 3 ML PEN SC SCH ×4 (09:39→20:54)
[2018-04-25] MEDS: CEFEPIME 1GM/50 ML (PMX) 50 ML IVPB SCH ×2 (09:40→20:52)
[2018-04-25] MEDS: ASPIRIN 81 MG TAB PO SCH (09:41)
[2018-04-25] MEDS: METOPROLOL 50 MG TAB PO SCH ×2 (09:43→20:53)
[2018-04-25] MEDS: HEPARIN 5,000 UNIT/1 ML VIAL SC SCH ×2 (09:59→21:10)
--- NOTE | 2018-04-25 10:35 | CONS ---
Assessment/Plan Assessment/Plan Hospital Course 87 yo F with hx of HTN who presents for evaluation of ams in the context of fevers... for which neurology is consulted. UTI + Clinically consistent with an acute toxic-metabolic encephalopathy in the context of systemic infection. Encephalitis is unlikely. MRI brain is reassuringly without acute intracranial pathology, though is notable for multiple chronic infarcts. Echo is unrevealing. As an aside, she is noted to have LUE tremors, which family reports to have progressively worsened over the past 4 years... which raises suspicion for an idiopathic Parkinson's disease. P: Cont ASA/Lipitor for secondary stroke prevention PT/OT/ST as tolerated Cont medical management per primary Consider trial of Sinemet in the future, when her mental status improves Will follow clinically Consultation Date/Type/Reason Admit Date/Time Apr 22, 2018 at 21:39 Type of Consult Neurology Requesting Provider: KAREN CROWELL Date/Time of Note DATE: 04/25/18 TIME: 10:35 24 HR Interval Summary Free Text/Dictation Continues telemetry monitoring. Pt reportedly still confused today. Exam Vital Signs Vitals Vital Signs Date Temp Pulse Resp B/P (MAP) Pulse Ox O2 O2 Flow FiO2 Time Delivery Rate 04/25/18 99.6 91 20 139/64 96 Nasal 10:03 (89) Cannula 04/25/18 2.0 06:00 04/24/18 32 04:23 Intake and Output 04/24/18 04/24/18 04/25/18 1515:00 23:00 07:00 IntakeIntake Total 425 ml 680 ml BalanceBalance 425 ml 680 ml Exam PE: Gen Appearance: No Apparent Distress HEENT: Normocephalic Cardiovascular: Regular rate Lungs: Clear bilaterally Abdomen: Soft Extremities: Dry NE: The patient was alert and oriented to self and hospital; sparsely verbal. Language was normal. Fund of knowledge was poor. Pupils were equal and reactive to light. There was no afferent pupillary defect. Visual garcia were normal. Funduscopic examination was limited. Extra-ocular movements were full. Ptosis was absent. There was no nystagmus. Facial sensation was normal. Face was symmetric with normal strength. Hearing was intact. Palate movements were normal. Neck strength was normal. There was normal tongue bulk and speed of movement. Tone was increased in BUE, L>R. Muscle bulk was diminished. LUE and R hand resting tremors persist. Arms and legs were weak, symmetrically. Vibration sensation was normal. Temperature and pinprick sensation was normal. Rapid alternating movements were slow and uncoordinated. Dysmetria noted bilaterally. There is an intention tremor BL. Gait was deferred due to bedrest. Arm and leg reflexes were 2+ and symmetric. Escobar's sign was absent. Plantar responses were flexor. JAY LEMUS NP Apr 25, 2018 10:35 MYNOR RG Apr 25, 2018 12:03
--- NOTE | 2018-04-25 11:57 | PN ---
Date/Time of Note Date/Time of Note DATE: 04/25/18 TIME: 11:48 Assessment/Plan VTE Prophylaxis Risk score (from Ns)>0 risk: 7 SCD applied (from Ns): No SCD contraindicated: other Pharmacological prophylaxis: heparin Lines/Catheters IV [facility] Type (from [facility]): Peripheral IV Urinary Cath still in place: No Assessment/Plan Hospital Course Subjective: Patient seen by neurology team this morning, no acute events overnight. Objective : Constitutional: arousable, elderly, no distress, confused Head: normocephalic, atraumatic Eyes: PERRL Respiratory: clear to auscultation, normal air movement Cardiovascular: RRR, no murmurs Gastrointestinal: soft Extremities: normal pulses, other (Left upper extremity tremor.) Neurological: other (Not fully oriented. Left upper extremity tremor noted. Unable to fully assess because of her current mental status) Left elbow x-ray: 1. Anterior joint effusion. No obvious radial head fracture identified although occult fracture cannot be excluded if there is history of trauma. 2. Additionally, there is focal contour irregularity/irregular overlap of the junction of the medial epicondyle on AP view which is slightly o bliqued/suboptimal, and may be exaggerated by positioning. 3. Consider CT for further evaluation. Assessment and plan : 87-year-old female with a history of hypertension who was brought to the ER for confusion. Patient is accompanied by family who provided history. According to the son, patient was complaining of headache 5 days ago. Three days ago, she started becoming confused and was having difficulty with ambulation. Son also reported foul-smelling urine. She is managed as follows: 1. Sepsis- likely secondary to UTI -less fevers now-urine growing ESBL E. coli -Continue current antibiotics, follow up final culture results 2. Altered mental status : improved alertness, but still somewhat confused -CT and MRI head showing old strokes only for now, no new pathology- may also be progression of dementia -Monitor, continue PT, follow-up neurology recommendations 3. Chronic left upper extremity tremor, possibly essential tremor.-idiopathic parkinsons? X-ray results reviewed -Monitor, as mentioned in x-ray consider CT scan of elbow if indicated -Follow-up recommendations from OT eval 4. VENKAT: resolved with hydration -continue to monitor creatinine levels -stop IVF as soon as patient can take PO 5. Hypertension: Still fluctuating -Monitor, continue some home meds 6. Multiple Prev CVA 7. Hypokalemia: Resolved -Monitor, replete as needed 8. DM. Hgb A1c 8.0-new diagnosis -SSI for now, depending on indices, we'll determine further care -diabetic education further interventions per course Prophylaxis: pepcid / heparin Result Diagram: 04/25/18 0538 04/25/18 0538 Results 24hrs Laboratory Tests Test 04/24/18 12:09 04/24/18 17:40 04/24/18 20:48 04/25/18 05:38 Bedside Glucose 160 127 170 White Blood Count 9.7 Red Blood Count 3.59 L Hemoglobin 10.8 L Hematocrit 32.5 L Mean Corpuscular Volume 90.5 Mean Corpuscular 30.1 Hemoglobin Mean Corpuscular 33.2 Hemoglobin Concent Red Cell Distribution 13.6 Width Platelet Count 198 Mean Platelet Volume 11.1 H Immature Granulocytes % 0.800 H Neutrophils % 74.5 Lymphocytes % 13.7 L Monocytes % 10.4 Eosinophils % 0.4 Basophils % 0.2 Nucleated Red Blood 0.0 Cells % Immature Granulocytes # 0.080 H Neutrophils # 7.2 Lymphocytes # 1.3 Monocytes # 1.0 H Eosinophils # 0.0 Basophils # 0.0 Nucleated Red Blood 0.0 Cells # Sodium Level 140 Potassium Level 3.8 Chloride Level 107 Carbon Dioxide Level 23 Anion Gap 10 Blood Urea Nitrogen 22 H Creatinine 0.79 Est Glomerular Filtrat Rate mL/min Glucose Level 160 Calcium Level 9.3 Test 04/25/18 08:25 04/25/18 09:38 Bedside Glucose 163 133 Exam/Review of Systems Exam Vitals Vital Signs Date Temp Pulse Resp B/P (MAP) Pulse Ox O2 O2 Flow FiO2 Time Delivery Rate 04/25/18 99.6 91 20 139/64 96 Nasal 10:03 (89) Cannula 04/25/18 2.0 06:00 04/24/18 32 04:23 Intake and Output 04/24/18 04/24/18 04/25/18 1515:00 23:00 07:00 IntakeIntake Total 425 ml 680 ml BalanceBalance 425 ml 680 ml Results Results 24hrs Laboratory Tests Test 04/24/18 12:09 04/24/18 17:40 04/24/18 20:48 04/25/18 05:38 Bedside Glucose 160 127 170 White Blood Count 9.7 Red Blood Count 3.59 L Hemoglobin 10.8 L Hematocrit 32.5 L Mean Corpuscular Volume 90.5 Mean Corpuscular 30.1 Hemoglobin Mean Corpuscular 33.2 Hemoglobin Concent Red Cell Distribution 13.6 Width Platelet Count 198 Mean Platelet Volume 11.1 H Immature Granulocytes % 0.800 H Neutrophils % 74.5 Lymphocytes % 13.7 L Monocytes % 10.4 Eosinophils % 0.4 Basophils % 0.2 Nucleated Red Blood 0.0 Cells % Immature Granulocytes # 0.080 H Neutrophils # 7.2 Lymphocytes # 1.3 Monocytes # 1.0 H Eosinophils # 0.0 Basophils # 0.0 Nucleated Red Blood 0.0 Cells # Sodium Level 140 Potassium Level 3.8 Chloride Level 107 Carbon Dioxide Level 23 Anion Gap 10 Blood Urea Nitrogen 22 H Creatinine 0.79 Est Glomerular Filtrat Rate mL/min Glucose Level 160 Calcium Level 9.3 Test 04/25/18 08:25 04/25/18 09:38 Bedside Glucose 163 133 Medications Medication Current Medications Sodium Chloride 1,000 ml @ 40 mls/hr Q24H IV Last administered on 04/24/18 07:31; Admin Dose 40 MLS/HR; Start 04/22/18 at 23:15 IV Flush (NS 3 ml) 3 ml PER PROTOCOL IV ; Start 04/22/18 at 23:30 Ondansetron HCl (Zofran Inj) 4 mg Q6H PRN IV NAUSEA/VOMITING; Start 04/22/18 at 23:30 Acetaminophen (Tylenol Tab) 650 mg Q6H PRN PO .PAIN 1-3 OR TEMP Last administered on 04/24/18at 00:32; Admin Dose 650 MG; Start 04/22/18 at 23:30 Heparin Sodium (Porcine) (Heparin (5000 Units/1ml)) 5,000 unit Q12 SC Last administered on 04/25/18 09:59; Admin Dose 5,000 UNIT; Start 04/23/18 at 09:00 Albuterol/ Ipratropium (Duoneb) 3 ml Q2H RESP THERAPY PRN HHN SHORTNESS OF BREATH; Start 04/22/18 at 23:30 Cefepime HCl 50 ml @ 100 mls/hr Q12 IVPB Last administered on 3/2/19at 09:40; Admin Dose 100 MLS/HR; Start 04/23/18 at 09:00 Acetaminophen (Tylenol Supp) 650 mg Q6H PRN [place] FEVER; Start 04/23/18 at 00:30 Famotidine (Pepcid Iv) 20 mg HS IV Last administered on 04/24/18at 20:56; Admin Dose 20 MG; Start 04/23/18 at 21:00 Aspirin (Aspirin) 81 mg DAILY PO Last administered on 04/25/18at 09:41; Admin Dose 81 MG; Start 04/23/18 at 13:00 Atorvastatin Calcium (Lipitor) 20 mg HS PO Last administered on 04/24/18at 20:50; Admin Dose 20 MG; Start 04/23/18 at 21:00 Hydralazine HCl (Apresoline) 10 mg Q6H PRN IV ELEVATED SYSTOLIC BP Last administered on 04/25/18at 04:23; Admin Dose 10 MG; Start 04/23/18 at 17:00 Diagnostic Test (Pha) (Accu-Chek) 1 ea 02 XX ; Start 04/25/18 at 02:00 Insulin Aspart (Novolog Insulin Pen) NOVOLOG *MILD* ALGORITHM WITH MEALS BEDTIME SC Last administered on 04/24/18at 12:30; Admin Dose 1 UNIT; Start 04/24/18 at 07:55 Miscellaneous Information 1 ea NOTE XX ; Start 04/24/18 at 07:30 Glucose (Glutose) 15 gm Q15M PRN PO DECREASED GLUCOSE; Start 04/24/18 at 07:30 Glucose (Glutose) 22.5 gm Q15M PRN PO DECREASED GLUCOSE; Start 04/24/18 at 07:30 Dextrose (D50w Syringe) 25 ml Q15M PRN IV DECREASED GLUCOSE; Start 04/24/18 at 07:30 Dextrose (D50w Syringe) 50 ml Q15M PRN IV DECREASED GLUCOSE; Start 04/24/18 at 07:30 Glucagon (Glucagen) 1 mg Q15M PRN IM DECREASED GLUCOSE; Start 04/24/18 at 07:30 Glucose (Glutose) 15 gm Q15M PRN BUCCAL DECREASED GLUCOSE; Start 04/24/18 at 07:30 Captopril (Capoten) 25 mg DAILY PO Last administered on 04/25/18at 09:41; Admin Dose 25 MG; Start 04/24/18 at 09:00 Metoprolol Tartrate (Lopressor) 50 mg BID PO Last administered on 04/25/18at 09:43; Admin Dose 50 MG; Start 04/24/18 at 21:00 PETERSON WASHINGTON Apr 25, 2018 11:57
[2018-04-25] MEDS: SOD CHLORIDE 0.9% 1,000 ML IV SCH (17:34)
[2018-04-25] MEDS: ATORVASTATIN 20 MG TAB PO SCH (20:50)
[2018-04-25] MEDS: FAMOTIDINE 20 MG INJ IV SCH (20:51)
[2018-04-26] VITALS (12 sets, daily range): BP systolic 118–172; BP diastolic 65–90; PULSE 68–105; RESP 20–22
[2018-04-26] MEDS: hydrALAzine 20 MG INJ IV PRN (01:16)
[2018-04-26] MEDS: ACCU-CHEK XX SCH (01:17)
[2018-04-26] MEDS: INSULIN ASPART [NOVOLOG] 3 ML PEN SC SCH ×4 (07:55→21:00)
[2018-04-26] MEDS: CEFEPIME 1GM/50 ML (PMX) 50 ML IVPB SCH ×2 (08:14→20:48)
[2018-04-26] MEDS: ASPIRIN 81 MG TAB PO SCH (08:14)
[2018-04-26] MEDS: METOPROLOL 50 MG TAB PO SCH ×2 (08:15→20:49)
[2018-04-26] MEDS: HEPARIN 5,000 UNIT/1 ML VIAL SC SCH ×2 (08:29→21:04)
[2018-04-26] MEDS ORDERED: POTASSIUM CHLORIDE (SR) 20 MEQ TAB PO STA (11:13)
--- NOTE | 2018-04-26 11:23 | PN ---
Date/Time of Note Date/Time of Note DATE: 04/26/18 TIME: 11:22 Assessment/Plan VTE Prophylaxis Risk score (from Ns)>0 risk: 4 SCD applied (from Ns): No SCD contraindicated: other Pharmacological prophylaxis: heparin Lines/Catheters IV [facility] Type (from [facility]): Peripheral IV Urinary Cath still in place: No Assessment/Plan Hospital Course Subjective: Had no fevers overnight, tolerating diet, seen by neurology team yesterday. Objective : Constitutional: arousable, elderly, no distress, confused Head: normocephalic, atraumatic Eyes: PERRL Respiratory: clear to auscultation, normal air movement Cardiovascular: RRR, no murmurs Gastrointestinal: soft Extremities: normal pulses, other (Left upper extremity tremor.) Neurological: other (Not fully oriented. Left upper extremity tremor noted. Unable to fully assess because of her current mental status) Left elbow x-ray: 1. Anterior joint effusion. No obvious radial head fracture identified although occult fracture cannot be excluded if there is history of trauma. 2. Additionally, there is focal contour irregularity/irregular overlap of the junction of the medial epicondyle on AP view which is slightly obliqued/suboptimal, and may be exaggerated by positioning. 3. Consider CT for further evaluation. Assessment and plan : 87-year-old female with a history of hypertension who was brought to the ER for confusion. Patient is accompanied by family who provided history. According to the son, patient was complaining of headache 5 days ago. Three days ago, she started becoming confused and was having difficulty with ambulation. Son also reported foul-smelling urine. She is managed as follows: 1. Sepsis- likely secondary to UTI -less fevers now-urine growing ESBL E. coli -Continue current antibiotics, follow up final culture results 2. Altered mental status : improved alertness, but still somewhat confused -CT and MRI head showing old strokes only for now, no new pathology- may also be progression of dementia -Monitor, continue PT, follow-up neurology recommendations 3. Chronic left upper extremity tremor, possibly essential tremor.-idiopathic parkinsons? X-ray results reviewed -Monitor, as mentioned in x-ray consider CT scan of elbow if indicated -Follow-up recommendations from OT eval 4. VENKAT: resolved with hydration -continue to monitor creatinine levels 5. Hypertension: Still fluctuating -Monitor, continue some home meds 6. Multiple Prev CVA 7. Hypokalemia: Resolved -Monitor, replete as needed 8. DM. Hgb A1c 8.0-new diagnosis -SSI for now -Consider diabetic education Dispo: further interventions per course -Case management working on placement issues as well Prophylaxis: pepcid / heparin Result Diagram: 04/26/18 0610 04/26/18 0610 Results 24hrs Laboratory Tests Test 04/25/18 12:06 04/25/18 17:24 04/25/18 20:48 04/26/18 06:10 Bedside Glucose 146 154 118 White Blood Count 8.6 Red Blood Count 3.71 L Hemoglobin 11.2 L Hematocrit 33.9 L Mean Corpuscular Volume 91.4 Mean Corpuscular 30.2 Hemoglobin Mean Corpuscular 33.0 Hemoglobin Concent Red Cell Distribution 13.8 Width Platelet Count 217 Mean Platelet Volume 11.3 H Immature Granulocytes % 1.000 H Neutrophils % 67.9 Lymphocytes % 17.3 Monocytes % 11.1 H Eosinophils % 2.2 Basophils % 0.5 Nucleated Red Blood 0.0 Cells % Immature Granulocytes # 0.090 H Neutrophils # 5.9 Lymphocytes # 1.5 Monocytes # 1.0 H Eosinophils # 0.2 Basophils # 0.0 Nucleated Red Blood 0.0 Cells # Sodium Level 139 Potassium Level 3.4 L Chloride Level 104 Carbon Dioxide Level 23 Anion Gap 12 Blood Urea Nitrogen 26 H Creatinine 0.83 Est Glomerular Filtrat Rate mL/min Glucose Level 120 # Calcium Level 9.2 Phosphorus Level 3.1 Magnesium Level 1.9 Test 04/26/18 07:54 Bedside Glucose 117 Exam/Review of Systems Exam Vitals Vital Signs Date Temp Pulse Resp B/P (MAP) Pulse Ox O2 O2 Flow FiO2 Time Delivery Rate 04/26/18 104 08:00 04/26/18 98.0 22 118/65 96 Room Air 07:51 (82) 04/26/18 2.0 07:44 04/24/18 32 04:23 Intake and Output 04/25/18 04/25/18 04/26/18 1515:00 23:00 07:00 IntakeIntake Total 530 ml 150 ml BalanceBalance 530 ml 150 ml Results Results 24hrs Laboratory Tests Test 04/25/18 12:06 04/25/18 17:24 04/25/18 20:48 04/26/18 06:10 Bedside Glucose 146 154 118 White Blood Count 8.6 Red Blood Count 3.71 L Hemoglobin 11.2 L Hematocrit 33.9 L Mean Corpuscular Volume 91.4 Mean Corpuscular 30.2 Hemoglobin Mean Corpuscular 33.0 Hemoglobin Concent Red Cell Distribution 13.8 Width Platelet Count 217 Mean Platelet Volume 11.3 H Immature Granulocytes % 1.000 H Neutrophils % 67.9 Lymphocytes % 17.3 Monocytes % 11.1 H Eosinophils % 2.2 Basophils % 0.5 Nucleated Red Blood 0.0 Cells % Immature Granulocytes # 0.090 H Neutrophils # 5.9 Lymphocytes # 1.5 Monocytes # 1.0 H Eosinophils # 0.2 Basophils # 0.0 Nucleated Red Blood 0.0 Cells # Sodium Level 139 Potassium Level 3.4 L Chloride Level 104 Carbon Dioxide Level 23 Anion Gap 12 Blood Urea Nitrogen 26 H Creatinine 0.83 Est Glomerular Filtrat Rate mL/min Glucose Level 120 # Calcium Level 9.2 Phosphorus Level 3.1 Magnesium Level 1.9 Test 04/26/18 07:54 Bedside Glucose 117 Medications Medication Current Medications Sodium Chloride 1,000 ml @ 40 mls/hr Q24H IV Last administered on 04/25/18at 17:34; Admin Dose 40 MLS/HR; Start 04/22/18 at 23:15 IV Flush (NS 3 ml) 3 ml PER PROTOCOL IV ; Start 04/22/18 at 23:30 Ondansetron HCl (Zofran Inj) 4 mg Q6H PRN IV NAUSEA/VOMITING; Start 04/22/18 at 23:30 Acetaminophen (Tylenol Tab) 650 mg Q6H PRN PO .PAIN 1-3 OR TEMP Last administered on 04/24/18at 00:32; Admin Dose 650 MG; Start 04/22/18 at 23:30 Heparin Sodium (Porcine) (Heparin (5000 Units/1ml)) 5,000 unit Q12 SC Last administered on 04/26/18at 08:29; Admin Dose 5,000 UNIT; Start 04/23/18 at 09:00 Albuterol/ Ipratropium (Duoneb) 3 ml Q2H RESP THERAPY PRN HHN SHORTNESS OF BREATH; Start 04/22/18 at 23:30 Cefepime HCl 50 ml @ 100 mls/hr Q12 IVPB Last administered on 04/26/18 08:14; Admin Dose 100 MLS/HR; Start 04/23/18 at 09:00 Acetaminophen (Tylenol Supp) 650 mg Q6H PRN [place] FEVER; Start 04/23/18 at 00:30 Famotidine (Pepcid Iv) 20 mg HS IV Last administered on 04/25/18at 20:51; Admin Dose 20 MG; Start 04/23/18 at 21:00 Aspirin (Aspirin) 81 mg DAILY PO Last administered on 04/26/18 08:14; Admin D ose 81 MG; Start 04/23/18 at 13:00 Atorvastatin Calcium (Lipitor) 20 mg HS PO Last administered on 04/25/18 20:50; Admin Dose 20 MG; Start 04/23/18 at 21:00 Hydralazine HCl (Apresoline) 10 mg Q6H PRN IV ELEVATED SYSTOLIC BP Last administered on 04/26/18 01:16; Admin Dose 10 MG; Start 04/23/18 at 17:00 Diagnostic Test (Pha) (Accu-Chek) 1 ea 02 XX ; Start 04/25/18 at 02:00 Insulin Aspart (Novolog Insulin Pen) NOVOLOG *MILD* ALGORITHM WITH MEALS BEDTIME SC Last administered on 04/25/18 17:29; Admin Dose 1 UNIT; Start 04/24/18 at 07:55 Miscellaneous Information 1 ea NOTE XX ; Start 04/24/18 at 07:30 Glucose (Glutose) 15 gm Q15M PRN PO DECREASED GLUCOSE; Start 04/24/18 at 07:30 Glucose (Glutose) 22.5 gm Q15M PRN PO DECREASED GLUCOSE; Start 04/24/18 at 07:30 Dextrose (D50w Syringe) 25 ml Q15M PRN IV DECREASED GLUCOSE; Start 04/24/18 at 07:30 Dextrose (D50w Syringe) 50 ml Q15M PRN IV DECREASED GLUCOSE; Start 04/24/18 at 07:30 Glucagon (Glucagen) 1 mg Q15M PRN IM DECREASED GLUCOSE; Start 04/24/18 at 07:30 Glucose (Glutose) 15 gm Q15M PRN BUCCAL DECREASED GLUCOSE; Start 04/24/18 at 07:30 Captopril (Capoten) 25 mg DAILY PO Last administered on 04/26/18at 08:15; Admin Dose 25 MG; Start 04/24/18 at 09:00 Metoprolol Tartrate (Lopressor) 50 mg BID PO Last administered on 04/26/18at 08:15; Admin Dose 50 MG; Start 04/24/18 at 21:00 PETERSON WASHINGTON Apr 26, 2018 11:23
--- NOTE | 2018-04-26 12:55 | CONS ---
DATE OF ADMISSION: 04/22/2018 DATE OF CONSULTATION: 04/26/2018 TYPE OF CONSULTATION: ORTHOPEDIC SURGICAL HISTORY OF PRESENT ILLNESS: The patient is an 87-year-old right-handed female who was admitted on when she was brought into the Emergency Room because of mental confusion. She is known to h ave hypertension. The initial evaluation in the hospital revealed that she might have metabolic ence phalopathy from the sepsis from urinary tract infection, possible CVA was suspected; however, finding s are negative for CVA. Orthopedic surgery was consulted for the evaluation of the left upper extrem ity, especially involving the left elbow. According to the family members, she has been having tremo rs involving her left upper extremity for about 4 years now. Denies any history of previous trauma. She was able to move her left upper extremity and make a fist, even though she has a tremor. There was no unusual swelling or limit of motion involving the left elbow and there were no signs of any ac teller pyogenic process or inflammatory process involving the left elbow. There were no signs of effusi on clinically on local examination. The routine x-rays of the left elbow is showing a so-called positive fat pad sign which is suggestive of effusion and the CT scan of the left elbow is also showing similar findings. However, there were no other signs of acute trauma such as fracture or dislocations. DIAGNOSTIC IMPRESSION: 1. Tremor involving left upper extremity, possibly related to Parkinson disease according to neurolo gic evaluation. 2. No clinical signs of effusion involving the left elbow in spite of the radiologic findings sugges tive of effusion. RECOMMENDATIONS FOR MANAGEMENT: No further orthopedic surgical evaluation or management is needed fo r her left elbow. Dictated By: OLYA NAPIER MD IK/NTS Conf#: [id number] DID#: [id number] CC: JAVED BRADY MD;*EndCC*
--- NOTE | 2018-04-26 15:55 | CONS ---
Assessment/Plan Assessment/Plan Hospital Course 87 yo F with hx of HTN who presents for evaluation of ams in the context of fevers... for which neurology is consulted. UTI + Clinically consistent with an acute toxic-metabolic encephalopathy in the context of systemic infection. Encephalitis is unlikely. MRI brain is reassuringly without acute intracranial pathology, though is notable for multiple chronic infarcts. Echo is unrevealing. As an aside, she is noted to have LUE tremors, which family reports to have progressively worsened over the past 4 years... which raises suspicion for an idiopathic Parkinson's disease. P: Cont ASA/Lipitor for secondary stroke prevention PT/OT/ST as tolerated Cont medical management per primary Consider trial of Sinemet in the future, when her mental status improves Will follow clinically Consultation Date/Type/Reason Admit Date/Time Apr 22, 2018 at 21:39 Type of Consult Neurology Requesting Provider: KAREN CROWELL Date/Time of Note DATE: 04/26/18 TIME: 15:54 24 HR Interval Summary Free Text/Dictation Continues acute care Exam Vital Signs Vitals Vital Signs Date Temp Pulse Resp B/P (MAP) Pulse Ox O2 O2 Flow FiO2 Time Delivery Rate 04/26/18 92 12:00 04/26/18 98.4 20 161/67 96 Room Air 11:55 (98) 04/26/18 2.0 07:44 04/24/18 32 04:23 Intake and Output 04/25/18 04/25/18 04/26/18 1515:00 23:00 07:00 IntakeIntake Total 530 ml 150 ml BalanceBalance 530 ml 150 ml Exam PE: Gen Appearance: No Apparent Distress HEENT: Normocephalic Cardiovascular: Regular rate Lungs: Clear bilaterally Abdomen: Soft Extremities: Dry NE: The patient was alert and oriented to self and hospital; sparsely verbal. Language was normal. Fund of knowledge was poor. Pupils were equal and reactive to light. There was no afferent pupillary defect. Visual garcia were normal. Funduscopic examination was limited. Extra-ocular movements were full. Ptosis was absent. There was no nystagmus. Facial sensation was normal. Face was symmetric with normal strength. Hearing was intact. Palate movements were normal. Neck strength was normal. There was normal tongue bulk and speed of movement. Tone was increased in BUE, L>R. Muscle bulk was diminished. LUE and R hand resting tremors persist. Arms and legs were weak, symmetrically. Vibration sensation was normal. Temperature and pinprick sensation was normal. Rapid alternating movements were slow and uncoordinated. Dysmetria noted bilaterally. There is an intention tremor BL. Gait was deferred due to bedrest. Arm and leg reflexes were 2+ and symmetric. Escobar's sign was absent. Plantar responses were flexor. Constitutional: well developed MYNOR RG Apr 26, 2018 15:55
[2018-04-26] MEDS: SOD CHLORIDE 0.9% 1,000 ML IV SCH (17:48)
[2018-04-26] MEDS: FAMOTIDINE 20 MG INJ IV SCH (20:47)
[2018-04-26] MEDS: ATORVASTATIN 20 MG TAB PO SCH (20:48)
[2018-04-27] VITALS (13 sets, daily range): BP systolic 139–174; BP diastolic 65–77; PULSE 65–94; RESP 16–20
[2018-04-27] MEDS: ACCU-CHEK XX SCH (01:22)
[2018-04-27] MEDS: hydrALAzine 20 MG INJ IV PRN (01:23)
[2018-04-27] MEDS: INSULIN ASPART [NOVOLOG] 3 ML PEN SC SCH ×4 (07:55→20:55)
[2018-04-27] MEDS: CEFEPIME 1GM/50 ML (PMX) 50 ML IVPB SCH (08:33)
[2018-04-27] MEDS: METOPROLOL 50 MG TAB PO SCH ×2 (08:37→20:56)
[2018-04-27] MEDS: ASPIRIN 81 MG TAB PO SCH (08:37)
[2018-04-27] MEDS: HEPARIN 5,000 UNIT/1 ML VIAL SC SCH ×2 (08:53→21:27)
--- NOTE | 2018-04-27 16:16 | CONS ---
Assessment/Plan Assessment/Plan Hospital Course 87 yo F with hx of HTN who presents for evaluation of ams in the context of fevers... for which neurology is consulted. UTI + Clinically consistent with an acute toxic-metabolic encephalopathy in the context of systemic infection. Encephalitis is unlikely. MRI brain is reassuringly without acute intracranial pathology, though is notable for multiple chronic infarcts. Echo is unrevealing. As an aside, she is noted to have LUE tremors, which family reports to have progressively worsened over the past 4 years... which raises suspicion for an idiopathic Parkinson's disease. P: Cont ASA/Lipitor for secondary stroke prevention Start trial of Sinemet 25/100 tid PT/OT/ST as tolerated Cont medical management per primary Will follow clinically Consultation Date/Type/Reason Admit Date/Time Apr 22, 2018 at 21:39 Type of Consult Neurology Reason for Consultation ams Requesting Provider: KAREN CROWELL Date/Time of Note DATE: 04/27/18 TIME: 16:16 24 HR Interval Summary Free Text/Dictation Continues acute care Exam Vital Signs Vitals Vital Signs Date Temp Pulse Resp B/P (MAP) Pulse Ox O2 O2 Flow FiO2 Time Delivery Rate 04/27/18 73 15:30 04/27/18 98.0 16 152/70 96 15:10 (97) 04/27/18 Nasal 2.0 07:59 Cannula 04/24/18 32 04:23 Intake and Output 04/26/18 04/26/18 04/27/18 1414:59 22:59 06:59 IntakeIntake Total 420 ml 850 ml BalanceBalance 420 ml 850 ml Exam PE: Gen Appearance: No Apparent Distress HEENT: Normocephalic Cardiovascular: Regular rate Abdomen: Soft Extremities: Dry NE: The patient was alert and oriented to self and hospital; sparsely verbal. Language was normal. Fund of knowledge was poor. Pupils were equal and reactive to light. There was no afferent pupillary defect. Visual garcia were normal. Funduscopic examination was limited. Extra-ocular movements were full. Ptosis was absent. There was no nystagmus. Facial sensation was normal. Face was symmetric with normal strength. Hearing was intact. Palate movements were normal. Neck strength was normal. There was normal tongue bulk and speed of movement. Tone was increased in BUE, L>R. Muscle bulk was diminished. LUE and R hand resting tremors persist. Arms and legs were weak, symmetrically. Vibration sensation was normal. Temperature and pinprick sensation was normal. Rapid alternating movements were slow and uncoordinated. Dysmetria noted bilaterally. There is an intention tremor BL. Gait was deferred due to bedrest. Arm and leg reflexes were 2+ and symmetric. Escobar's sign was absent. Plantar responses were flexor. JAY LEMUS NP Apr 27, 2018 16:16 MYNOR RG Apr 27, 2018 16:46
--- NOTE | 2018-04-27 17:07 | PN ---
Date/Time of Note Date/Time of Note DATE: 04/27/18 TIME: 16:57 Assessment/Plan VTE Prophylaxis Risk score (from Ns)>0 risk: 4 SCD applied (from Ns): Yes Pharmacological prophylaxis: heparin Lines/Catheters IV Catheter Type (from Nrs): Peripheral IV Urinary Cath still in place: No Assessment/Plan Hospital Course Subjective: very sleepy, family is concerned, they say patient has been excessively sleepy for the last 2 days -she got IM haldol 5mg and 3mg morphine in the early hours of 04/25/18 Objective : Constitutional: arousable but very sleepy, elderly, no distress, mentattion could not be assessed well d/t lethargy Head: normocephalic, atraumatic Eyes: PERRL Respiratory: clear to auscultation, normal air movement Cardiovascular: RRR, no murmurs Gastrointestinal: soft Extremities: normal pulses, Neurological: drowsy++ assessment and plan This is an 87-year-old female with a history of hypertension who was brought to the ER for confusion. Patient is accompanied by family who provided history. According to the son, patient was complaining of headache 5 days ago. Three days ago, she started becoming confused and was having difficulty with ambulation. Son also reported foul-smelling urine. She is managed as follows: 1. Sepsis, likely secondary to UTI (ESBL): improved. -Complete 7 day course of abx tomorrow 2. Altered mental status : toxic metabolic -CT and MRI head showing old strokes only for now, no new pathology -may also be progression of dementia -Neuro also notes possible new diagnosis of idiopathic parkinsons -avoid any further sedating or mood altering medications for now -confusion if still present when meds wear off, may be patient's new baselin e 3. 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 -idiopathic parkinsons? -no tremor now, very lethargic 4. VENKAT: resolved with hydration -continue to monitor creatinine levels 5. Hypertension: BP has been fluctuating -resume home meds 6. Multiple Prev CVA 7. DM. Hgb A1c 8.0 -new diagnosis -SSI for now, depending on indices, we'll determine further care further interventions per course Prophylaxis: pepcid / heparin Dispo: - await improved mentation, then d/c to snf for short term rehab Result Diagram: 04/26/18 0610 04/26/18 0610 Results 24hrs Laboratory Tests Test 04/26/18 17:32 04/26/18 20:44 04/27/18 07:56 04/27/18 12:13 Bedside Glucose 146 133 127 148 Exam/Review of Systems Exam Vitals Vital Signs Date Temp Pulse Resp B/P (MAP) Pulse Ox O2 O2 Flow FiO2 Time Delivery Rate 04/27/18 65 16:17 04/27/18 98.0 16 152/70 96 15:10 (97) 04/27/18 Nasal 2.0 07:59 Cannula 04/24/18 32 04:23 Intake and Output 04/26/18 04/26/18 04/27/18 1515:00 23:00 07:00 IntakeIntake Total 470 ml 800 ml BalanceBalance 470 ml 800 ml Results Results 24hrs Laboratory Tests Test 04/26/18 17:32 04/26/18 20:44 04/27/18 07:56 04/27/18 12:13 Bedside Glucose 146 133 127 148 Medications Medication Current Medications Sodium Chloride 1,000 ml @ 40 mls/hr Q24H IV Last administered on 04/26/18at 17:48; Admin Dose 40 MLS/HR; Start 04/22/18 at 23:15 IV Flush (NS 3 ml) 3 ml PER PROTOCOL IV ; Start 04/22/18 at 23:30 Ondansetron HCl (Zofran Inj) 4 mg Q6H PRN IV NAUSEA/VOMITING; Start 04/22/18 at 23:30 Acetaminophen (Tylenol Tab) 650 mg Q6H PRN PO .PAIN 1-3 OR TEMP Last administered on 04/24/18at 00:32; Admin Dose 650 MG; Start 04/22/18 at 23:30 Heparin Sodium (Porcine) (Heparin (5000 Units/1ml)) 5,000 unit Q12 SC Last administered on 04/27/18at 08:53; Admin Dose 5,000 UNIT; Start 04/23/18 at 09:00 Albuterol/ Ipratropium (Duoneb) 3 ml Q2H RESP THERAPY PRN HHN SHORTNESS OF BREATH; Start 04/22/18 at 23:30 Cefepime HCl 50 ml @ 100 mls/hr Q12 IVPB Last administered on 04/27/18 08:33; Admin Dose 100 MLS/HR; Start 04/23/18 at 09:00 Acetaminophen (Tylenol Supp) 650 mg Q6H PRN MT FEVER; Start 04/23/18 at 00:30 Famotidine (Pepcid Iv) 20 mg HS IV Last administered on 04/26/18 20:47; Admin Dose 20 MG; Start 04/23/18 at 21:00 Aspirin (Aspirin) 81 mg DAILY PO Last administered on 04/27/18 08:37; Admin Dose 81 MG; Start 04/23/18 at 13:00 Atorvastatin Calcium (Lipitor) 20 mg HS PO Last administered on 04/26/18 20:48; Admin Dose 20 MG; Start 04/23/18 at 21:00 Hydralazine HCl (Apresoline) 10 mg Q6H PRN IV ELEVATED SYSTOLIC BP Last administered on 04/27/18 01:23; Admin Dose 10 MG; Start 04/23/18 at 17:00 Diagnostic Test (Pha) (Accu-Chek) 1 ea 02 XX ; Start 04/25/18 at 02:00 Insulin Aspart (Novolog Insulin Pen) NOVOLOG *MILD* ALGORITHM WITH MEALS BEDTIME SC Last administered on 04/27/18 12:18; Admin Dose 1 UNIT; Start 04/24/18 at 07:55 Miscellaneous Information 1 ea NOTE XX ; Start 04/24/18 at 07:30 Glucose (Glutose) 15 gm Q15M PRN PO DECREASED GLUCOSE; Start 04/24/18 at 07:30 Glucose (Glutose) 22.5 gm Q15M PRN PO DECREASED GLUCOSE; Start 04/24/18 at 07:30 Dextrose (D50w Syringe) 25 ml Q15M PRN IV DECREASED GLUCOSE; Start 04/24/18 at 07:30 Dextrose (D50w Syringe) 50 ml Q15M PRN IV DECREASED GLUCOSE; Start 04/24/18 at 07:30 Glucagon (Glucagen) 1 mg Q15M PRN IM DECREASED GLUCOSE; Start 04/24/18 at 07:30 Glucose (Glutose) 15 gm Q15M PRN BUCCAL DECREASED GLUCOSE; Start 04/24/18 at 07:30 Captopril (Capoten) 25 mg DAILY PO Last administered on 04/27/18 08:38; Admin Dose 25 MG; Start 04/24/18 at 09:00 Metoprolol Tartrate (Lopressor) 50 mg BID PO Last administered on 04/27/18at 08:37; Admin Dose 50 MG; Start 04/24/18 at 21:00 Carbidopa/Levodopa (Sinemet (25/ 100)) 1 tab TID PO ; Start 04/27/18 at 21:00 KAREN CROWELL Apr 27, 2018 17:07
[2018-04-27] MEDS: SOD CHLORIDE 0.9% 1,000 ML IV SCH (18:44)
[2018-04-27] MEDS: CIPROFLOXACIN 500 MG TAB PO SCH (18:44)
[2018-04-27] MEDS: ATORVASTATIN 20 MG TAB PO SCH (20:55)
[2018-04-27] MEDS: FAMOTIDINE 20 MG INJ IV SCH (20:55)
[2018-04-27] MEDS ORDERED: CARBIDOPA/LEVODOPA (25/100) TAB PO SCH (21:00)
[2018-04-28] VITALS (15 sets, daily range): BP systolic 146–192; BP diastolic 65–86; PULSE 74–97; RESP 16–18
[2018-04-28] MEDS: ACCU-CHEK XX SCH (02:00)
[2018-04-28] MEDS: ALBUTEROL/IPRATROPIUM (NEB) 3 ML AMP HHN PRN (02:57)
[2018-04-28] MEDS: CIPROFLOXACIN 500 MG TAB PO SCH ×2 (05:02→18:52)
[2018-04-28] MEDS: hydrALAzine 20 MG INJ IV PRN ×2 (05:02→16:40)
[2018-04-28] MEDS: INSULIN ASPART [NOVOLOG] 3 ML PEN SC SCH ×4 (07:43→20:42)
[2018-04-28] MEDS: ASPIRIN 81 MG TAB PO SCH (08:30)
[2018-04-28] MEDS: METOPROLOL 50 MG TAB PO SCH ×2 (08:31→20:42)
[2018-04-28] MEDS: HEPARIN 5,000 UNIT/1 ML VIAL SC SCH ×2 (08:33→20:53)
--- NOTE | 2018-04-28 14:57 | CONS ---
Assessment/Plan Assessment/Plan Hospital Course 87 yo F with hx of HTN who presents for evaluation of ams in the context of fevers... for which neurology is consulted. UTI + Clinically consistent with an acute toxic-metabolic encephalopathy in the context of systemic infection. Encephalitis is unlikely. MRI brain is reassuringly without acute intracranial pathology, though is notable for multiple chronic infarcts. Echo is unrevealing. As an aside, she is noted to have LUE tremors, which family reports to have progressively worsened over the past 4 years... which raises suspicion for an idiopathic Parkinson's disease. P: Cont ASA/Lipitor for secondary stroke prevention PT/OT/ST as tolerated Cont medical management per primary Consider retrial of Sinemet 25/100 tid as an outpatient Will follow clinically Consultation Date/Type/Reason Admit Date/Time Apr 22, 2018 at 21:39 Type of Consult Neurology Reason for Consultation ams Requesting Provider: KAREN CROWELL Date/Time of Note DATE: 04/28/18 TIME: 14:57 24 HR Interval Summary Free Text/Dictation Continues acute care Exam Vital Signs Vitals Vital Signs Date Temp Pulse Resp B/P (MAP) Pulse Ox O2 O2 Flow FiO2 Time Delivery Rate 04/28/18 86 12:22 04/28/18 97.9 149/70 96 11:57 (96) 04/28/18 16 07:24 04/28/18 Nasal 2.0 02:58 Cannula Intake and Output 04/27/18 04/27/18 04/28/18 1515:00 23:00 07:00 IntakeIntake Total 600 ml 780 ml BalanceBalance 600 ml 780 ml JAY LEMUS NP Apr 28, 2018 14:57 MYNOR RG Apr 28, 2018 16:05
--- NOTE | 2018-04-28 16:55 | PN ---
Date/Time of Note Date/Time of Note DATE: 04/28/18 TIME: 16:53 Assessment/Plan VTE Prophylaxis Risk score (from Nsg)>0 risk: 5 SCD applied (from Nsg): Yes Lines/Catheters IV Catheter Type (from Nrsg): Peripheral IV Urinary Cath still in place: No Assessment/Plan Hospital Course Subjective: mentation is just a bit better, but still very sleepy -she got IM haldol 5mg and 3mg morphine in the early hours of 04/25/18 Objective : Constitutional: arousable but very sleepy, elderly, no distress, mentattion could not be assessed well d/t lethargy Head: normocephalic, atraumatic Eyes: PERRL Respiratory: clear to auscultation, normal air movement Cardiovascular: RRR, no murmurs Gastrointestinal: soft Extremities: normal pulses, Neurological: drowsy++ assessment and plan This is an 87-year-old female with a history of hypertension who was brought to the ER for confusion. Patient is accompanied by family who provided history. According to the son, patient was complaining of headache 5 days ago. Three days ago, she started becoming confused and was having difficulty with ambulation. Son also reported foul-smelling urine. She is managed as follows: 1. Sepsis, likely secondary to UTI (ESBL): improved. -Complete 7 day course of abx tomorrow 2. Altered mental status : toxic metabolic -CT and MRI head showing old strokes only for now, no new pathology -may also be progression of dementia -Neuro also notes possible new diagnosis of idiopathic parkinsons -avoid any further sedating or mood altering medications for now -confusion if still present when meds wear off, may be patient's new baselin e 3. 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 -idiopathic parkinsons? -no tremor now, very lethargic 4. VENKAT: resolved with hydration -continue to monitor creatinine levels 5. Hypertension: BP has been fluctuating -resume home meds 6. Multiple Prev CVA 7. DM. Hgb A1c 8.0 -new diagnosis -SSI for now, depending on indices, we'll determine further care further interventions per course Prophylaxis: pepcid / heparin Dispo: - await improved mentation, then d/c to snf for short term rehab Result Diagram: 04/28/18 0533 04/28/18 0533 Results 24hrs Laboratory Tests Test 04/27/18 17:25 04/27/18 17:28 04/27/18 20:54 04/28/18 05:33 Total Bilirubin 0.1 L Direct Bilirubin 0.00 Indirect Bilirubin 0.1 Aspartate Amino 28 Transf (AST/SGOT) Alanine 22 Aminotransferase (ALT/SG PT) Alkaline Phosphatase 93 Ammonia 17 Total Protein 6.3 Albumin 2.9 L Bedside Glucose 138 166 White Blood Count 7.2 Red Blood Count 3.65 L Hemoglobin 11.0 L Hematocrit 33.7 L Mean Corpuscular Volume 92.3 Mean Corpuscular 30.1 Hemoglobin Mean Corpuscular 32.6 Hemoglobin Concent Red Cell Distribution 13.6 Width Platelet Count 241 Mean Platelet Volume 11.3 H Immature Granulocytes % 1.500 H Neutrophils % 53.9 Segmented Neutrophils 54 % (Manual) Band Neutrophils % 4 (Manual) Lymphocytes % 27.1 Lymphocytes % (Manual) 30 Reactive Lymphocytes 2 H % (Manual) Monocytes % 12.2 H Monocytes % (Manual) 4 Eosinophils % 4.6 Eosinophils % (Manual) 4 Basophils % 0.7 Metamyelocytes % 2 H (manual) Nucleated Red Blood 0.0 Cells % Immature Granulocytes # 0.110 H Neutrophils # 3.9 Neutrophils # (Manual) 3.9 Band Neutrophils # 0.2 Lymphocytes (Manual) 2.1 Lymphocytes # 2.0 Reactive Lymphocytes # 0.1 H Monocytes # 0.9 Monocytes # (Manual) 0.2 L Eosinophils # 0.3 Basophils # 0.1 Metamyelocytes # 0.1 H Nucleated Red Blood 0.0 Cells # Platelet Estimate NORMAL Giant Platelets 4 H Polychromasia 1+ Sodium Level 141 Potassium Level 3.5 Chloride Level 111 H Carbon Dioxide Level 22 Anion Gap 8 Blood Urea Nitrogen 23 H Creatinine 0.83 Est Glomerular Filtrat Rate mL/min Glucose Level 105 Calcium Level 9.7 Phosphorus Level 3.5 Magnesium Level 2.0 Test 04/28/18 07:39 04/28/18 12:17 Bedside Glucose 97 129 Exam/Review of Systems Exam Vitals Vital Signs Date Temp Pulse Resp B/P (MAP) Pulse Ox O2 O2 Flow FiO2 Time Delivery Rate 04/28/18 192/85 16:39 (120) 04/28/18 83 16:24 04/28/18 98.6 16 97 15:25 04/28/18 Nasal 2.0 02:58 Cannula Intake and Output 04/27/18 04/27/18 04/28/18 1414:59 22:59 06:59 IntakeIntake Total 600 ml 780 ml BalanceBalance 600 ml 780 ml Results Results 24hrs Laboratory Tests Test 04/27/18 17:25 04/27/18 17:28 04/27/18 20:54 04/28/18 05:33 Total Bilirubin 0.1 L Direct Bilirubin 0.00 Indirect Bilirubin 0.1 Aspartate Amino 28 Transf (AST/SGOT) Alanine 22 Aminotransferase (ALT/SG PT) Alkaline Phosphatase 93 Ammonia 17 Total Protein 6.3 Albumin 2.9 L Bedside Glucose 138 166 White Blood Count 7.2 Red Blood Count 3.65 L Hemoglobin 11.0 L Hematocrit 33.7 L Mean Corpuscular Volume 92.3 Mean Corpuscular 30.1 Hemoglobin Mean Corpuscular 32.6 Hemoglobin Concent Red Cell Distribution 13.6 Width Platelet Count 241 Mean Platelet Volume 11.3 H Immature Granulocytes % 1.500 H Neutrophils % 53.9 Segmented Neutrophils 54 % (Manual) Band Neutrophils % 4 (Manual) Lymphocytes % 27.1 Lymphocytes % (Manual) 30 Reactive Lymphocytes 2 H % (Manual) Monocytes % 12.2 H Monocytes % (Manual) 4 Eosinophils % 4.6 Eosinophils % (Manual) 4 Basophils % 0.7 Metamyelocytes % 2 H (manual) Nucleated Red Blood 0.0 Cells % Immature Granulocytes # 0.110 H Neutrophils # 3.9 Neutrophils # (Manual) 3.9 Band Neutrophils # 0.2 Lymphocytes (Manual) 2.1 Lymphocytes # 2.0 Reactive Lymphocytes # 0.1 H Monocytes # 0.9 Monocytes # (Manual) 0.2 L Eosinophils # 0.3 Basophils # 0.1 Metamyelocytes # 0.1 H Nucleated Red Blood 0.0 Cells # Platelet Estimate NORMAL Giant Platelets 4 H Polychromasia 1+ Sodium Level 141 Potassium Level 3.5 Chloride Level 111 H Carbon Dioxide Level 22 Anion Gap 8 Blood Urea Nitrogen 23 H Creatinine 0.83 Est Glomerular Filtrat Rate mL/min Glucose Level 105 Calcium Level 9.7 Phosphorus Level 3.5 Magnesium Level 2.0 Test 04/28/18 07:39 04/28/18 12:17 Bedside Glucose 97 129 Medications Medication Current Medications Sodium Chloride 1,000 ml @ 40 mls/hr Q24H IV Last administered on 04/27/18 18:44; Admin Dose 40 MLS/HR; Start 04/22/18 at 23:15 IV Flush (NS 3 ml) 3 ml PER PROTOCOL IV ; Start 04/22/18 at 23:30 Ondansetron HCl (Zofran Inj) 4 mg Q6H PRN IV NAUSEA/VOMITING; Start 04/22/18 at 23:30 Acetaminophen (Tylenol Tab) 650 mg Q6H PRN PO .PAIN 1-3 OR TEMP Last a dministered on 04/24/18 00:32; Admin Dose 650 MG; Start 04/22/18 at 23:30 Heparin Sodium (Porcine) (Heparin (5000 Units/1ml)) 5,000 unit Q12 SC Last administered on 04/28/18 08:33; Admin Dose 5,000 UNIT; Start 04/23/18 at 09:00 Albuterol/ Ipratropium (Duoneb) 3 ml Q2H RESP THERAPY PRN HHN SHORTNESS OF BREATH Last administered on 04/28/18 02:57; Admin Dose 3 ML; Start 04/22/18 at 23:30 Acetaminophen (Tylenol Supp) 650 mg Q6H PRN [place] FEVER; Start 04/23/18 at 00:30 Famotidine (Pepcid Iv) 20 mg HS IV Last administered on 04/27/18 20:55; Admin Dose 20 MG; Start 04/23/18 at 21:00 Aspirin (Aspirin) 81 mg DAILY PO Last administered on 04/28/18 08:30; Admin Dose 81 MG; Start 04/23/18 at 13:00 Atorvastatin Calcium (Lipitor) 20 mg HS PO Last administered on 04/27/18 20:55; Admin Dose 20 MG; Start 04/23/18 at 21:00 Hydralazine HCl (Apresoline) 10 mg Q6H PRN IV ELEVATED SYSTOLIC BP Last admini stered on 04/28/18 16:40; Admin Dose 10 MG; Start 04/23/18 at 17:00 Diagnostic Test (Pha) (Accu-Chek) 1 ea 02 XX ; Start 04/25/18 at 02:00 Insulin Aspart (Novolog Insulin Pen) NOVOLOG *MILD* ALGORITHM WITH MEALS BEDTIME SC Last administered on 04/27/18 12:18; Admin Dose 1 UNIT; Start 04/24/18 at 07:55 Miscellaneous Information 1 ea NOTE XX ; Start 04/24/18 at 07:30 Glucose (Glutose) 15 gm Q15M PRN PO DECREASED GLUCOSE; Start 04/24/18 at 07:30 Glucose (Glutose) 22.5 gm Q15M PRN PO DECREASED GLUCOSE; Start 04/24/18 at 07:30 Dextrose (D50w Syringe) 25 ml Q15M PRN IV DECREASED GLUCOSE; Start 04/24/18 at 07:30 Dextrose (D50w Syringe) 50 ml Q15M PRN IV DECREASED GLUCOSE; Start 04/24/18 at 07:30 Glucagon (Glucagen) 1 mg Q15M PRN IM DECREASED GLUCOSE; Start 04/24/18 at 07:30 Glucose (Glutose) 15 gm Q15M PRN BUCCAL DECREASED GLUCOSE; Start 04/24/18 at 07:30 Captopril (Capoten) 25 mg DAILY PO Last administered on 04/28/18at 08:30; Admin Dose 25 MG; Start 04/24/18 at 09:00 Metoprolol Tartrate (Lopressor) 50 mg BID PO Last administered on 04/28/18at 08:31; Admin Dose 50 MG; Start 04/24/18 at 21:00 Ciprofloxacin (Cipro) 500 mg BID@,18 PO Last administered on 04/28/18at 05:02; Admin Dose 500 MG; Start 04/27/18 at 18:00; Stop 04/29/18 at 17:59 KAREN CROWELL Apr 28, 2018 16:55
[2018-04-28] MEDS: SOD CHLORIDE 0.9% 1,000 ML IV SCH (16:57)
[2018-04-28] MEDS: FAMOTIDINE 20 MG TAB PO SCH (20:41)
[2018-04-28] MEDS: ATORVASTATIN 20 MG TAB PO SCH (20:41)
[2018-04-29] VITALS (11 sets, daily range): BP systolic 148–192; BP diastolic 68–85; PULSE 71–89; RESP 16–20
[2018-04-29] MEDS: hydrALAzine 20 MG INJ IV PRN ×2 (00:05→07:56)
[2018-04-29] MEDS ORDERED: ENALAPRILAT 1.25 MG INJ IV ONE (01:00)
[2018-04-29] MEDS: ACCU-CHEK XX SCH (01:31)
[2018-04-29] MEDS: ALBUTEROL/IPRATROPIUM (NEB) 3 ML AMP HHN PRN (03:04)
[2018-04-29] MEDS ORDERED: LABETALOL HCL 20MG INJ IV ONE (04:00)
[2018-04-29] MEDS ORDERED: FUROSEMIDE 20 MG INJ IV ONE (05:00)
[2018-04-29] MEDS ORDERED: FUROSEMIDE 20 MG INJ ONE (05:14)
[2018-04-29] MEDS: CIPROFLOXACIN 500 MG TAB PO SCH (05:19)
[2018-04-29] MEDS: INSULIN ASPART [NOVOLOG] 3 ML PEN SC SCH ×4 (07:50→21:00)
[2018-04-29] MEDS: ASPIRIN 81 MG TAB PO SCH (08:33)
[2018-04-29] MEDS: METOPROLOL 50 MG TAB PO SCH ×2 (08:33→21:53)
[2018-04-29] MEDS: HEPARIN 5,000 UNIT/1 ML VIAL SC SCH ×2 (08:47→22:04)
--- NOTE | 2018-04-29 12:49 | CONS ---
Assessment/Plan Assessment/Plan Hospital Course 87 yo F with hx of HTN who presents for evaluation of ams in the context of fevers... for which neurology is consulted. UTI + Clinically consistent with an acute toxic-metabolic encephalopathy in the context of systemic infection. Encephalitis is unlikely. MRI brain is reassuringly without acute intracranial pathology, though is notable for multiple chronic infarcts. Echo is unrevealing. As an aside, she is noted to have LUE tremors, which family reports to have progressively worsened over the past 4 years... which raises suspicion for an idiopathic Parkinson's disease. P: Cont ASA/Lipitor for secondary stroke prevention PT/OT/ST as tolerated [place] as necessary Limit sedating medications where possible Cont medical management per primary Consider retrial of Sinemet 25/100 tid as an outpatient Will follow clinically Consultation Date/Type/Reason Admit Date/Time Apr 22, 2018 at 21:39 Type of Consult Neurology Reason for Consultation stroke Requesting Provider: KAREN CROWELL Date/Time of Note DATE: 04/29/18 TIME: 12:49 24 HR Interval Summary Free Text/Dictation Continues acute care Exam Vital Signs Vitals Vital Signs Date Temp Pulse Resp B/P (MAP) Pulse Ox O2 O2 Flow FiO2 Time Delivery Rate 04/29/18 71 12:40 04/29/18 98.7 16 159/72 96 11:20 (101) 04/29/18 Nasal 2.0 07:50 Cannula Intake and Output 04/28/18 04/28/18 04/29/18 1515:00 23:00 07:00 IntakeIntake Total 1270 ml 800 ml BalanceBalance 1270 ml 800 ml Exam PE: Gen Appearance: No Apparent Distress HEENT: Normocephalic Cardiovascular: Regular rate Abdomen: Soft Extremities: Dry NE: The patient was alert and oriented to self and hospital; sparsely verbal. Language was normal. Fund of knowledge was poor. Pupils were equal and reactive to light. There was no afferent pupillary defect. Visual garcia were normal. Funduscopic examination was limited. Extra-ocular movements were full. Ptosis was absent. There was no nystagmus. Facial sensation was normal. Face was symmetric with normal strength. Hearing was intact. Palate movements were normal. Neck strength was normal. There was normal tongue bulk and speed of movement. Tone was increased in BUE, L>R. Muscle bulk was diminished. LUE and R hand resting tremors persist. Arms and legs were weak, symmetrically. Vibration sensation was normal. Temperature and pinprick sensation was normal. Rapid alternating movements were slow and uncoordinated. Dysmetria noted bilaterally. There is an intention tremor BL. Gait was deferred due to bedrest. Arm and leg reflexes were 2+ and symmetric. Escobar's sign was absent. Plantar responses were flexor. JAY LEMUS NP Apr 29, 2018 12:49 MYNOR RG Apr 29, 2018 13:31
--- NOTE | 2018-04-29 15:45 | PN ---
Date/Time of Note Date/Time of Note DATE: 04/29/18 TIME: 15:43 Assessment/Plan VTE Prophylaxis Risk score (from Ns)>0 risk: 5 SCD applied (from Ns): Yes Pharmacological prophylaxis: heparin Lines/Catheters IV Catheter Type (from Nrs): Saline Lock Urinary Cath still in place: No Assessment/Plan Hospital Course Subjective: mentation is improving, did quite a bit with PT per report Objective : Constitutional: arousable but very sleepy, elderly, no distress, mentattion could not be assessed well d/t lethargy Head: normocephalic, atraumatic Eyes: PERRL Respiratory: clear to auscultation, normal air movement Cardiovascular: RRR, no murmurs Gastrointestinal: soft Extremities: normal pulses, Neurological: drowsy++ assessment and plan This is an 87-year-old female with a history of hypertension who was brought to the ER for confusion. Patient is accompanied by family who provided history. According to the son, patient was complaining of headache 5 days ago. Three days ago, she started becoming confused and was having difficulty with ambulation. Son also reported foul-smelling urine. She is managed as follows: 1. Sepsis, likely secondary to UTI (ESBL): improved. -Complete 7 day course of abx tomorrow 2. Altered mental status : toxic metabolic -CT and MRI head showing old strokes only for now, no new pathology -may also be progression of dementia -Neuro also notes possible new diagnosis of idiopathic parkinsons -avoid any further sedating or mood altering medications for now -confusion if still present when meds wear off, may be patient's new baseline 3. 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 -idiopathic parkinsons? -no tremor now, very lethargic 4. VENKAT: resolved with hydration -continue to monitor creatinine levels 5. Hypertension: BP has been fluctuating -resume home meds 6. Multiple Prev CVA 7. DM. Hgb A1c 8.0 -new diagnosis -SSI for now, depending on indices, we'll determine further care further interventions per course Prophylaxis: pepcid / heparin Dispo: - continue inpatient care, no insurance so cannot go to SNF and still very debilitated and altered and cannot go to [facility] Result Diagram: 04/29/18 0612 04/29/18 0612 Results 24hrs Laboratory Tests Test 04/28/18 16:54 04/28/18 18:33 04/28/18 20:39 04/29/18 06:12 Blood Gas Specimen Blood arterial Source Arterial Blood 04/28/2018 5:30:38 Date Drawn PM Arterial Blood pH 7.506 H (Temp corrected) Arterial Blood 31.8 L pCO2 (Temp correct) Arterial Blood pO2 77.3 L (Temp corrected) Arterial Blood 24.6 HCO3 Arterial Blood 1.9 Base Excess Arterial Blood 95.4 Oxygen Saturation Bakari Test ACCEPTAB Arterial Blood Gas Right Radial Puncture Site Arterial 0.3 Blood Carboxyhemog lobin Arterial Blood 0.5 Methemoglobin Blood Gas A-a O2 77.6 H Differential Oxyhemoglobin 94.6 Percent Blood Gas 37.0 Temperature Blood Gas Modality NASAL CANNULA FiO2 27.0 Blood Gas Notified DT Whom Blood Gas Notified 04/28/2018 5:48:16 Time PM Bedside Glucose 151 130 White Blood Count 7.6 Red Blood Count 3.78 L Hemoglobin 11.2 L Hematocrit 34.2 L Mean Corpuscular 90.5 Volume Mean Corpuscular 29.6 Hemoglobin Mean Corpuscular 32.7 Hemoglobin Concent Red Cell 14.0 Distribution Width Platelet Count 293 # Mean Platelet 11.2 H Volume Immature 1.800 H Granulocytes % Neutrophils % Segmented 60 Neutrophils % (Manual) Band Neutrophils % 1 (Manual) Lymphocytes % Lymphocytes % 26 (Manual) Monocytes % Monocytes % 9 (Manual) Eosinophils % 3 (Manual) Basophils % 1 (Manual) Nucleated Red 0.0 Blood Cells % Immature 0.140 H Granulocytes # Neutrophils # Neutrophils # 4.6 (Manual) Band Neutrophils # 0.0 Lymphocytes 1.9 (Manual) Lymphocytes # Monocytes # Monocytes # 0.6 (Manual) Basophils # 0.0 (Manual) Platelet Estimate NORMAL Polychromasia 1+ Macrocytosis 1+ Ovalocytes 1+ Sodium Level 142 Potassium Level 3.6 Chloride Level 109 Carbon Dioxide 25 Level Anion Gap 8 Blood Urea 23 H Nitrogen Creatinine 0.84 Est Glomerular Filtrat Rate mL/min Glucose Level 126 Calcium Level 9.9 Test 04/29/18 07:49 04/29/18 11:31 Bedside Glucose 129 138 Exam/Review of Systems Exam Vitals Vital Signs Date Temp Pulse Resp B/P (MAP) Pulse Ox O2 O2 Flow FiO2 Time Delivery Rate 04/29/18 98.7 77 16 149/68 96 15:41 (95) 04/29/18 Nasal 2.0 07:50 Cannula Intake and Output 04/28/18 04/28/18 04/29/18 1515:00 23:00 07:00 IntakeIntake Total 1270 ml 800 ml BalanceBalance 1270 ml 800 ml Results Results 24hrs Laboratory Tests Test 04/28/18 16:54 04/28/18 18:33 04/28/18 20:39 04/29/18 06:12 Blood Gas Specimen Blood arterial Source Arterial Blood 04/28/2018 5:30:38 Date Drawn PM Arterial Blood pH 7.506 H (Temp corrected) Arterial Blood 31.8 L pCO2 (Temp correct) Arterial Blood pO2 77.3 L (Temp corrected) Arterial Blood 24.6 HCO3 Arterial Blood 1.9 Base Excess Arterial Blood 95.4 Oxygen Saturation Bakari Test ACCEPTAB Arterial Blood Gas Right Radial Puncture Site Arterial 0.3 Blood Carboxyhemog lobin Arterial Blood 0.5 Methemoglobin Blood Gas A-a O2 77.6 H Differential Oxyhemoglobin 94.6 Percent Blood Gas 37.0 Temperature Blood Gas Modality NASAL CANNULA FiO2 27.0 Blood Gas Notified DT Whom Blood Gas Notified 04/28/2018 5:48:16 Time PM Bedside Glucose 151 130 White Blood Count 7.6 Red Blood Count 3.78 L Hemoglobin 11.2 L Hematocrit 34.2 L Mean Corpuscular 90.5 Volume Mean Corpuscular 29.6 Hemoglobin Mean Corpuscular 32.7 Hemoglobin Concent Red Cell 14.0 Distribution Width Platelet Count 293 # Mean Platelet 11.2 H Volume Immature 1.800 H Granulocytes % Neutrophils % Segmented 60 Neutrophils % (Manual) Band Neutrophils % 1 (Manual) Lymphocytes % Lymphocytes % 26 (Manual) Monocytes % Monocytes % 9 (Manual) Eosinophils % 3 (Manual) Basophils % 1 (Manual) Nucleated Red 0.0 Blood Cells % Immature 0.140 H Granulocytes # Neutrophils # Neutrophils # 4.6 (Manual) Band Neutrophils # 0.0 Lymphocytes 1.9 (Manual) Lymphocytes # Monocytes # Monocytes # 0.6 (Manual) Basophils # 0.0 (Manual) Platelet Estimate NORMAL Polychromasia 1+ Macrocytosis 1+ Ovalocytes 1+ Sodium Level 142 Potassium Level 3.6 Chloride Level 109 Carbon Dioxide 25 Level Anion Gap 8 Blood Urea 23 H Nitrogen Creatinine 0.84 Est Glomerular Filtrat Rate mL/min Glucose Level 126 Calcium Level 9.9 Test 04/29/18 07:49 04/29/18 11:31 Bedside Glucose 129 138 Medications Medication Current Medications IV Flush (NS 3 ml) 3 ml PER PROTOCOL IV ; Start 04/22/18 at 23:30 Ondansetron HCl (Zofran Inj) 4 mg Q6H PRN IV NAUSEA/VOMITING; Start 04/22/18 at 23:30 Acetaminophen (Tylenol Tab) 650 mg Q6H PRN PO .PAIN 1-3 OR TEMP Last administered on 04/24/18at 00:32; Admin Dose 650 MG; Start 04/22/18 at 23:30 Heparin Sodium (Porcine) (Heparin (5000 Units/1ml)) 5,000 unit Q12 SC Last administered on 04/29/18 08:47; Admin Dose 5,000 UNIT; Start 04/23/18 at 09:00 Albuterol/ Ipratropium (Duoneb) 3 ml Q2H RESP THERAPY PRN HHN SHORTNESS OF BREATH Last administered on 04/29/18at 03:04; Admin Dose 3 ML; Start 04/22/18 at 23:30 Acetaminophen (Tylenol Supp) 650 mg Q6H PRN [place] FEVER; Start 04/23/18 at 00:30 Aspirin (Aspirin) 81 mg DAILY PO Last administered on 04/29/18 08:33; Admin Dose 81 MG; Start 04/23/18 at 13:00 Atorvastatin Calcium (Lipitor) 20 mg HS PO Last administered on 04/28/18at 20:41; Admin Dose 20 MG; Start 04/23/18 at 21:00 Hydralazine HCl (Apresoline) 10 mg Q6H PRN IV ELEVATED SYSTOLIC BP Last administered on 04/29/18 07:56; Admin Dose 10 MG; Start 04/23/18 at 17:00 Diagnostic Test (Pha) (Accu-Chek) 1 ea 02 XX ; Start 04/25/18 at 02:00 Insulin Aspart (Novolog Insulin Pen) NOVOLOG *MILD* ALGORITHM WITH MEALS BEDTIME SC Last administered on 04/28/18 18:54; Admin Dose 1 UNIT; Start 04/24/18 at 07:55 Miscellaneous Information 1 ea NOTE XX ; Start 04/24/18 at 07:30 Glucose (Glutose) 15 gm Q15M PRN PO DECREASED GLUCOSE; Start 04/24/18 at 07:30 Glucose (Glutose) 22.5 gm Q15M PRN PO DECREASED GLUCOSE; Start 04/24/18 at 07:30 Dextrose (D50w Syringe) 25 ml Q15M PRN IV DECREASED GLUCOSE; Start 04/24/18 at 0 7:30 Dextrose (D50w Syringe) 50 ml Q15M PRN IV DECREASED GLUCOSE; Start 04/24/18 at 07:30 Glucagon (Glucagen) 1 mg Q15M PRN IM DECREASED GLUCOSE; Start 04/24/18 at 07:30 Glucose (Glutose) 15 gm Q15M PRN BUCCAL DECREASED GLUCOSE; Start 04/24/18 at 07:30 Captopril (Capoten) 25 mg DAILY PO Last administered on 04/29/18at 08:34; Admin Dose 25 MG; Start 04/24/18 at 09:00 Metoprolol Tartrate (Lopressor) 50 mg BID PO Last administered on 04/29/18at 08:33; Admin Dose 50 MG; Start 04/24/18 at 21:00 Ciprofloxacin (Cipro) 500 mg BID@06,18 PO Last administered on 04/29/18at 05:19; Admin Dose 500 MG; Start 04/27/18 at 18:00; Stop 04/29/18 at 17:59 Famotidine (Pepcid) 20 mg HS PO Last administered on 04/28/18at 20:41; Admin Dose 20 MG; Start 04/28/18 at 21:00 KAREN CROWELL Apr 29, 2018 15:45
[2018-04-29] MEDS ORDERED: NIFEdipine (XL) 30 MG TAB PO SCH (21:00)
[2018-04-29] MEDS: ATORVASTATIN 20 MG TAB PO SCH (21:51)
[2018-04-29] MEDS: FAMOTIDINE 20 MG TAB PO SCH (21:51)
[2018-04-30] VITALS (11 sets, daily range): BP systolic 128–155; BP diastolic 59–82; PULSE 67–88; RESP 18–20
[2018-04-30] MEDS: NIFEdipine 10 MG CAP PO SCH ×4 (00:49→21:25)
[2018-04-30] MEDS: ACCU-CHEK XX SCH (02:00)
[2018-04-30] MEDS: INSULIN ASPART [NOVOLOG] 3 ML PEN SC SCH ×4 (07:55→20:33)
[2018-04-30] MEDS: METOPROLOL 50 MG TAB PO SCH ×2 (09:17→21:12)
[2018-04-30] MEDS: ASPIRIN 81 MG TAB PO SCH (09:18)
[2018-04-30] MEDS: HEPARIN 5,000 UNIT/1 ML VIAL SC SCH ×2 (09:49→21:17)
--- NOTE | 2018-04-30 12:54 | PN ---
Date/Time of Note Date/Time of Note DATE: 04/30/18 TIME: 12:51 Assessment/Plan VTE Prophylaxis Risk score (from Nsg)>0 risk: 7 SCD applied (from Nsg): Yes Lines/Catheters IV Catheter Type (from Nrsg): Saline Lock Urinary Cath still in place: No Assessment/Plan Hospital Course Subjective: improves slowly daily Objective : Constitutional: easier to arouse, Head: normocephalic, atraumatic Eyes: PERRL Respiratory: clear to auscultation, normal air movement Cardiovascular: RRR, no murmurs Gastrointestinal: soft Extremities: normal pulses, Neurological: less drowsy assessment and plan This is an 87-year-old female with a history of hypertension who was brought to the ER for confusion. Patient is accompanied by family who provided history. According to the son, patient was complaining of headache 5 days ago. Three days ago, she started becoming confused and was having difficulty with ambulation. Son also reported foul-smelling urine. She is managed as follows: 1. Sepsis, likely secondary to UTI (ESBL): improved. -Completed 7 day course of abx 2. Altered mental status : toxic metabolic: improving -CT and MRI head showing old strokes only for now, no new pathology -may also be progression of dementia -Neuro also notes possible new diagnosis of idiopathic parkinsons -avoid any further sedating or mood altering medications for now -confusion if still present when meds wear off, may be patient's new baseline 3. 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 -idiopathic parkinsons? -no tremor now, very lethargic 4. VENKAT: resolved with hydration -continue to monitor creatinine levels 5. Hypertension: BP has been fluctuating -resume home meds 6. Multiple Prev CVA 7. DM. Hgb A1c 8.0 -new diagnosis -SSI for now, depending on indices, we'll determine further care further interventions per course Prophylaxis: pepcid / heparin Dispo: - continue inpatient care, no insurance, still a 2P assist with everything, family available with patient 24h but patient will still need home PT -will d/w family and PT about safest course of action Result Diagram: 04/30/18 0610 04/30/18 0610 Results 24hrs Laboratory Tests Test 04/29/18 17:32 04/29/18 21:50 04/30/18 06:10 04/30/18 07:58 Bedside Glucose 155 123 113 White Blood Count 7.5 Red Blood Count 4.01 L Hemoglobin 11.9 L Hematocrit 36.5 L Mean Corpuscular Volume 91.0 Mean Corpuscular 29.7 Hemoglobin Mean Corpuscular 32.6 Hemoglobin Concent Red Cell Distribution 14.1 Width Platelet Count 250 Mean Platelet Volume 11.8 H Immature Granulocytes % 2.300 H Neutrophils % 49.3 Lymphocytes % 31.7 Monocytes % 10.3 Eosinophils % 5.7 Basophils % 0.7 Nucleated Red Blood 0.0 Cells % Immature Granulocytes # 0.170 H Neutrophils # 3.7 Lymphocytes # 2.4 Monocytes # 0.8 Eosinophils # 0.4 Basophils # 0.1 Nucleated Red Blood 0.0 Cells # Sodium Level 140 Potassium Level 4.0 Chloride Level 105 Carbon Dioxide Level 25 Anion Gap 10 Blood Urea Nitrogen 27 H Creatinine 0.88 Est Glomerular Filtrat Rate mL/min Glucose Level 118 Calcium Level 10.2 Test 04/30/18 11:58 Bedside Glucose 174 Exam/Review of Systems Exam Vitals Vital Signs Date Temp Pulse Resp B/P (MAP) Pulse Ox O2 O2 Flow FiO2 Time Delivery Rate 04/30/18 70 12:44 04/30/18 98.0 18 155/68 99 Nasal 11:14 (97) Cannula 04/30/18 2.0 10:07 Intake and Output 04/29/18 04/29/18 04/30/18 1515:00 23:00 07:00 IntakeIntake Total 900 ml 480 ml BalanceBalance 900 ml 480 ml Results Results 24hrs Laboratory Tests Test 04/29/18 17:32 04/29/18 21:50 04/30/18 06:10 04/30/18 07:58 Bedside Glucose 155 123 113 White Blood Count 7.5 Red Blood Count 4.01 L Hemoglobin 11.9 L Hematocrit 36.5 L Mean Corpuscular Volume 91.0 Mean Corpuscular 29.7 Hemoglobin Mean Corpuscular 32.6 Hemoglobin Concent Red Cell Distribution 14.1 Width Platelet Count 250 Mean Platelet Volume 11.8 H Immature Granulocytes % 2.300 H Neutrophils % 49.3 Lymphocytes % 31.7 Monocytes % 10.3 Eosinophils % 5.7 Basophils % 0.7 Nucleated Red Blood 0.0 Cells % Immature Granulocytes # 0.170 H Neutrophils # 3.7 Lymphocytes # 2.4 Monocytes # 0.8 Eosinophils # 0.4 Basophils # 0.1 Nucleated Red Blood 0.0 Cells # Sodium Level 140 Potassium Level 4.0 Chloride Level 105 Carbon Dioxide Level 25 Anion Gap 10 Blood Urea Nitrogen 27 H Creatinine 0.88 Est Glomerular Filtrat Rate mL/min Glucose Level 118 Calcium Level 10.2 Test 04/30/18 11:58 Bedside Glucose 174 Medications Medication Current Medications IV Flush (NS 3 ml) 3 ml PER PROTOCOL IV ; Start 04/22/18 at 23:30 Ondansetron HCl (Zofran Inj) 4 mg Q6H PRN IV NAUSEA/VOMITING; Start 04/22/18 at 23:30 Acetaminophen (Tylenol Tab) 650 mg Q6H PRN PO .PAIN 1-3 OR TEMP Last administered on 04/24/18at 00:32; Admin Dose 650 MG; Start 04/22/18 at 23:30 Heparin Sodium (Porcine) (Heparin (5000 Units/1ml)) 5,000 unit Q12 SC Last administered on 04/30/18 09:49; Admin Dose 5,000 UNIT; Start 04/23/18 at 09:00 Albuterol/ Ipratropium (Duoneb) 3 ml Q2H RESP THERAPY PRN HHN SHORTNESS OF BREATH Last administered on 04/29/18 03:04; Admin Dose 3 ML; Start 04/22/18 at 23:30 Acetaminophen (Tylenol Supp) 650 mg Q6H PRN [place] FEVER; Start 04/23/18 at 00:30 Aspirin (Aspirin) 81 mg DAILY PO Last administered on 04/30/18 09:18; Admin Dose 81 MG; Start 04/23/18 at 13:00 Atorvastatin Calcium (Lipitor) 20 mg HS PO Last administered on 04/29/18 21:51; Admin Dose 20 MG; Start 04/23/18 at 21:00 Hydralazine HCl (Apresoline) 10 mg Q6H PRN IV ELEVATED SYSTOLIC BP Last administered on 04/29/18 07:56; Admin Dose 10 MG; Start 04/23/18 at 17:00 Diagnostic Test (Pha) (Accu-Chek) 1 ea 02 XX ; Start 04/25/18 at 02:00 Insulin Aspart (Novolog Insulin Pen) NOVOLOG *MILD* ALGORITHM WITH MEALS BEDTIME SC Last administered on 3/7/19at 12:11; Admin Dose 1 UNIT; Start 04/24/18 at 07:55 Miscellaneous Information 1 ea NOTE XX ; Start 04/24/18 at 07:30 Glucose (Glutose) 15 gm Q15M PRN PO DECREASED GLUCOSE; Start 04/24/18 at 07:30 Glucose (Glutose) 22.5 gm Q15M PRN PO DECREASED GLUCOSE; Start 04/24/18 at 07:30 Dextrose (D50w Syringe) 25 ml Q15M PRN IV DECREASED GLUCOSE; Start 04/24/18 at 07:30 Dextrose (D50w Syringe) 50 ml Q15M PRN IV DECREASED GLUCOSE; Start 04/24/18 at 07:30 Glucagon (Glucagen) 1 mg Q15M PRN IM DECREASED GLUCOSE; Start 04/24/18 at 07:30 Glucose (Glutose) 15 gm Q15M PRN BUCCAL DECREASED GLUCOSE; Start 04/24/18 at 07:30 Captopril (Capoten) 25 mg DAILY PO Last administered on 04/30/18at 09:18; Admin Dose 25 MG; Start 04/24/18 at 09:00 Metoprolol Tartrate (Lopressor) 50 mg BID PO Last administered on 04/30/18 09: 17; Admin Dose 50 MG; Start 04/24/18 at 21:00 Famotidine (Pepcid) 20 mg HS PO Last administered on 04/29/18at 21:51; Admin Dose 20 MG; Start 04/28/18 at 21:00 Nifedipine (Procardia) 20 mg Q8 PO Last administered on 04/30/18at 05:49; Admin Dose 20 MG; Start 04/29/18 at 22:00 KAREN CROWELL Apr 30, 2018 12:54
--- NOTE | 2018-04-30 13:35 | CONS ---
Assessment/Plan Assessment/Plan Hospital Course 87 yo F with hx of HTN who presents for evaluation of ams in the context of fevers... for which neurology is consulted. UTI + Clinically consistent with an acute toxic-metabolic encephalopathy in the context of systemic infection. Encephalitis is unlikely. MRI brain is reassuringly without acute intracranial pathology, though is notable for multiple chronic infarcts. Echo is unrevealing. As an aside, she is noted to have LUE tremors, which family reports to have progressively worsened over the past 4 years... which raises suspicion for an idiopathic Parkinson's disease. P: Cont ASA/Lipitor for secondary stroke prevention PT/OT/ST as tolerated [place] as necessary Limit sedating medications where possible Cont medical management per primary Consider retrial of Sinemet 25/100 tid as an outpatient Will sign off for now; please call w/ ?s Consultation Date/Type/Reason Admit Date/Time Apr 22, 2018 at 21:39 Type of Consult Neurology Reason for Consultation ams Requesting Provider: KAREN CROWELL Date/Time of Note DATE: 04/30/18 TIME: 13:35 24 HR Interval Summary Free Text/Dictation Continues acute care. Exam Vital Signs Vitals Vital Signs Date Temp Pulse Resp B/P (MAP) Pulse Ox O2 O2 Flow FiO2 Time Delivery Rate 04/30/18 70 12:44 04/30/18 98.0 18 155/68 99 Nasal 11:14 (97) Cannula 04/30/18 2.0 10:07 Intake and Output 04/29/18 04/29/18 04/30/18 1515:00 23:00 07:00 IntakeIntake Total 900 ml 480 ml BalanceBalance 900 ml 480 ml Exam PE: Gen Appearance: No Apparent Distress HEENT: Normocephalic Cardiovascular: Regular rate Abdomen: Soft Extremities: Dry NE: The patient was alert and oriented to self and hospital; sparsely verbal. Language was normal. Fund of knowledge was poor. Pupils were equal and reactive to light. There was no afferent pupillary defect. Visual garcia were normal. Funduscopic examination was limited. Extra-ocular movements were full. Ptosis was absent. There was no nystagmus. Facial sensation was normal. Face was symmetric with normal strength. Hearing was intact. Palate movements were normal. Neck strength was normal. There was normal tongue bulk and speed of movement. Tone was increased in BUE, L>R. Muscle bulk was diminished. LUE and R hand resting tremors persist. Arms and legs were weak, symmetrically. Vibration sensation was normal. Temperature and pinprick sensation was normal. Rapid alternating movements were slow and uncoordinated. Dysmetria noted bilaterally. There is an intention tremor BL. Gait was deferred due to bedrest. Arm and leg reflexes were 2+ and symmetric. Escobar's sign was absent. Plantar responses were flexor. JAY LEMUS NP Apr 30, 2018 13:35 MYNOR RG Apr 30, 2018 15:22
[2018-04-30] MEDS: FAMOTIDINE 20 MG TAB PO SCH (21:12)
[2018-04-30] MEDS: ATORVASTATIN 20 MG TAB PO SCH (21:12)
[2018-05-01] VITALS (10 sets, daily range): BP systolic 131–163; BP diastolic 60–72; PULSE 69–90; RESP 17–21
[2018-05-01] MEDS: ACCU-CHEK XX SCH (02:00)
[2018-05-01] MEDS: NIFEdipine 10 MG CAP PO SCH ×2 (06:13→14:03)
[2018-05-01] MEDS: INSULIN ASPART [NOVOLOG] 3 ML PEN SC SCH ×4 (07:55→21:00)
[2018-05-01] MEDS: ASPIRIN 81 MG TAB PO SCH (09:24)
[2018-05-01] MEDS: METOPROLOL 50 MG TAB PO SCH ×2 (09:24→21:06)
[2018-05-01] MEDS: HEPARIN 5,000 UNIT/1 ML VIAL SC SCH ×2 (09:30→21:36)
[2018-05-01] MEDS ORDERED: ASPI-831 PO (17:29)
[2018-05-01] MEDS ORDERED: PRO20 PO (17:29)
[2018-05-01] MEDS ORDERED: METO-429 PO (17:29)
[2018-05-01] MEDS ORDERED: ATOR20TA65 PO (17:29)
[2018-05-01] MEDS ORDERED: FAMO20TA18 PO (17:29)
[2018-05-01] MEDS ORDERED: IPRA3AMP29 HHN (17:32)
[2018-05-01] MEDS ORDERED: NEBU-113 MC (17:32)
[2018-05-01] MEDS: ATORVASTATIN 20 MG TAB PO SCH (21:04)
[2018-05-01] MEDS: FAMOTIDINE 20 MG TAB PO SCH (21:04)
--- NOTE | 2018-05-03 11:20 | DS ---
DATE OF ADMISSION: 04/22/2018 DATE OF DISCHARGE: 05/01/2018 PRESENTING COMPLAINT: Confusion. DISCHARGE DIAGNOSES: 1. Sepsis secondary to extended-spectrum beta-lactamase urinary tract infection, status post 7 days of antibiotics. 2. Altered mental status with concern for toxic metabolic secondary to #1, as well as underlying pro gression of dementia. There is also concern for a new diagnosis of idiopathic Parkinson's based on e vidence of tremors. 3. 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 4. VENKAT resolved with hydration. 5. Hypertension with improved control. 6. Multiple previous strokes. 7. Diabetes mellitus with hemoglobin A1c of 8.2. 8. Right-sided pneumonia, status post treatment. CONSULTS ON THE CASE: 1. Dr. Roberta Lopez from neurology. 2. Dr. Florina Thomason for orthopedic surgery. INTERVENTIONS: The patient had a 2D echo that showed a normal left ventricular systolic function, st age I diastolic dysfunction, peak PA systolic pressure of 42 as well as mild tricuspid regurgitation. The patient also had multiple imaging studies including chest x-rays. The final one on April 29, did show right-sided infiltrate, no edema, right side atelectasis, right side or dilated pu lmonary artery atherosclerosis. The patient also had a CT of the upper extremity because she was con tracted and not using her left upper extremity, but the CT showed degenerative ____ cyst formation at the olecranon. No acute fracture, small joint effusion which could . Based on CT findings, or thopedic surgery consultation was obtained, but no intervention was required. Patient also had CT of the brain as well as MRI of the brain that showed small old lacunar infarcts and bilateral akira tiform nucleus right cerebellum and no acute findings. Carotid Dopplers were also done that sh owed no hemodynamically significant stenosis. SHORT HOSPITALIZATION COURSE: Full details are available in the chart for review. In summary, this patient had come in with confusion and was diagnosed and managed as above. Unfortunately, the patien t does not have medical insurance and so was without benefit to get from senior living facility [facility] as she was quite debilitated and resided in a second floor apartment with multiple steps. She had to stay in the hospital for prolonged a period, while we are trying to arrange for a safe discha rge. Eventually, the family after a long discussion, opted for home with hospice care. They did rep ort that at this point, they felt the patient was suffering and they wanted her to be in their own ho me in a setting where she could thrive amongst her family and friends. Home hospice was consulted an d the patient was given option for hospice care. They eventually settled for one and she has been cl eared for discharge now to home with hospice. She did complete 7 days of antibiotic therapy and urin e actually was sent for test of cure, but results are pending at this time. Further interventions an d management will depend on the hospice physician. The patient may need, depending on goals of care, may need further antibiotics for right-sided pneumonia versus urinary tract infection if persistent. DISCHARGE MEDICATIONS: For a complete list of discharge medications, please review the patient's mary ann rt. DISCHARGE ACTIVITIES: As tolerated. DISCHARGE CONDITION: Poor long-term prognosis, but stable for discharge home with hospice. Time spent on discharge coordination today has been more than 90 minutes. Dictated By: KAREN CROWELL MD BA/NTS Conf#: [id number] DID#: [id number] CC: JAVED BRADY MD;*EndCC*
[2018-05-03] MEDS ORDERED: PRO20 PO (17:05)
[2018-05-03] MEDS ORDERED: FAMO20TA18 PO (17:05)
[2018-05-03] MEDS ORDERED: CAPT25TA3 PO (17:05)
[2018-05-03] MEDS ORDERED: NEBU-113 MC (17:05)
[2018-05-03] MEDS ORDERED: METO-429 PO (17:05)
[2018-05-03] MEDS ORDERED: IPRA3AMP29 HHN (17:05)
[2018-05-03] MEDS ORDERED: ASPI-831 PO (17:05)
[2018-05-03] MEDS ORDERED: ATOR20TA65 PO (17:05)
== END 2018-05-01 21:35 | disposition hospice, home (50) | DRG 871 ==
LOC: E/R 16:39 → TEL 21:39
PROVIDERS: ADMIT Internal Medicine; ATTEND Hospitalist
DX: A41.9 Sepsis, unspecified organism (principal); G92 Toxic encephalopathy; J18.9 Pneumonia, unspecified organism; N17.9 Acute kidney failure, unspecified; N39.0 Urinary tract infection, site not specified; I10 Essential (primary) hypertension; G20 Parkinson's disease; F03.90 Unspecified dementia, unspecified severity, without behavioral disturbance, psychotic disturbance, mood disturbance, and anxiety; E11.9 Type 2 diabetes mellitus without complications; E87.6 Hypokalemia; B96.89 Other specified bacterial agents as the cause of diseases classified elsewhere; Z86.73 Personal history of transient ischemic attack (TIA), and cerebral infarction without residual deficits
CPT/HCPCS: 36600; 70450; 70551; 71045; 73200; 80048; 80053; 80061; 80076; 81001; 82140; 82803; 82962; 83036; 83605; 83735; 84100; 84443; 84484; 85025; 85610; 85730; 87040; 87086; 87400; 92610; 93005; 93306; 93880; 94640; 94664; 97110; 97116; 97162; 97530; J0360; J0692; J1200; J1630; J1644; J1815; J1940; J2270; J2780; J3370; J3475; J3480; J7030